=== PATIENT | female | born 1985 | race Caucasian/White ===

== ENCOUNTER → 2018-02-23 16:12 | Outpatient (CLI) | payer OTHER, SELFPAY ==
[2018-02-23 18:17] LABS: Chlamydia Trachomatis by PCR Negative (Negative); Neisserai gonorrhoeae by PCR Negative (Negative); Probe Check PASS; Sample Adequacy Control PASS; Specimen Processing Control PASS
[2018-02-28 16:17] LABS: HPV Reflexed? NOT INDICATED
== END ==
PROVIDERS: Visit Provider Obstetrics & Gynecology
DX: Z12.4 Encounter for screening for malignant neoplasm of cervix (principal); Z11.3 Encounter for screening for infections with a predominantly sexual mode of transmission
CPT/HCPCS: 87491; 87591; 88175; G0145

== ENCOUNTER → 2018-08-03 10:42 | Outpatient (CLI) | payer OTHER, SELFPAY ==
[2018-08-03 14:23] LABS: Hematocrit 33.4 % (37-47); Mean Corp Hgb Conc 32.9 g/gl (32-36); Mean Corpuscular Hgb 29.5 pg (27.0-32.0); Mean Corpuscular Volume 89.5 fL (81-99); Mean Platelet Vol. 9.6 fl (6.2-12.0); Platelet Count 286 K/mm3 (150-450); RBC Distribution Width CV 13.4 % (11.6-14.6); RBC Distribution Width SD 42.8 fl (35.1-43.9); Red Blood Count 3.73 M/mm3 (4.2-5.4); White Blood Count 10.8 K/mm3 (4.4-11.0)
[2018-08-03 14:25] LABS: Scan Indicated on CBC? Y/N NO
[2018-08-03 14:41] LABS: Glucose Challenge Gest 1H 50g 156 mg/dL (70-140)
== END ==
PROVIDERS: Visit Provider Obstetrics & Gynecology
DX: Z34.83 Encounter for supervision of other normal pregnancy, third trimester (principal)
CPT/HCPCS: 36415; 82950; 85027

== ENCOUNTER → 2018-10-05 13:28 | Outpatient (CLI) | payer OTHER, SELFPAY ==
--- OUTSIDE RECORDS SUMMARY | 2018-11-30 17:57 | XMS RPT_ITS ---
:1985 Author Organization OHIP Care Team Providers Name Role Phone GOKUL DAILEY Admitting Unavailable GOKUL DAILEY Attending Unavailable GOKUL DAILEY Primary Care Unavailable GOKUL DAILEY Admitting Unavailable GOKUL DAILEY Attending Unavailable GOKUL DAILEY Primary Care Unavailable JARETH SHAW Consulting Unavailable PROVIDER, UNKNOWN Consulting Unavailable Gokul Dailey Attending Unavailable Gokul Dailey Referring Unavailable Gokul Dailey Admitting Unavailable Gokul Dailey Attending Unavailable Gokul Dailey Referring Unavailable Primay Care Physicia, No Primary Care Unavailable Gokul Dailey Attending Unavailable Gokul Dailey Attending Unavailable Sylwia Henry Attending Unavailable Sylwia Henry Referring Unavailable PROBLEMS PROBLEMS DATE TYPE CONDITION / CODE ATTENDING STATUS SOURCE 08/03/2018 Unknown Z34.83 - Encounter Gokul Dailey for supervision of [facility] other normal Hospital , third Repository trimester / Z34.83(ICD-10) 02/24/2018 Unknown Z12.4 - Encounter Gokul Dailey for screening for Community malignant neoplasm Hospital of cervix / Repository Z12.4(ICD-10) 02/24/2018 Unknown Z11.3 - Encounter Gokul Dailey for screening for Community infections with a Hospital predominantly Repository sexual mode of transmission / Z11.3(ICD-10) PROCEDURES PROCEDURES No Procedure Records FoundRESULTS RESULTS OPERATIVE REPORT Observed: 10/19/2018 Status: F Source: BRAIN 2:48 PM [facility] REPOSITORY [facility] Medical Records Department [address] [place] [address] Operative Report 10/19/18 1446 MR#: [id number] Acct: [id number] Name: ZENA ALVARADO Rep #: [id number] : 1985 33 From: Gokul Dailey MD PCP: Care Physician, No Primary Status: ADM IN Location: [place] [id number] Vaginal Delivery Maternal Presentation: Elective Induction Method of Induction: Pitocin, Amniotomy Amniotic Membrane Rupture Type: Artificial Amniotic Fluid Description: Clear Final SOLO: 10/26/18 Final SOLO Source: US <20 weeks Gestational age: 39 Weeks and 0 Days Date of Procedure: 10/19/18 Pre-Operative Diagnosis: IUP Post-Operative Diagnosis: IUP Surgery/ Procedure Performed: Spontaneous Vaginal Delivery Type of Anesthesia: None Description of Procedure: Spontaneous vaginal delivery of a viable female with Apgars of 8/9 from an occiput anterior presentation with clear amniotic fluid and normal three-vessel placenta. No episiotomy or laceration. Sponge counts okay. Delivery physician: Gokul Dailey MD. Presentation: Vertex Placental Delivery Description: Spontaneous Placenta Disposition: [facility] Cord Vessel Description: 3 Vessels Cord Entanglement: None Estimated Blood Loss: 250 cc A gender: Female (1 minute): 8 (5 minute): 9 Episiotomy Description: None Laceration: None Medications given after delivery: IV Pitocin Complications: None 10/19/18 1448 <Electronically signed by Gokul Dailey MD> Date Gokul Dailey MD CC: No Primary Care Physician; Gokul Dailey MD Signed DISCHARGE INSTRUCTION Observed: 10/19/2018 Status: F Source: BRAIN 2:48 PM [facility] REPOSITORY [facility] Medical Records Department [address] [place] [address] Instructions for Home/Discharge Instructions 10/19/18 1448 MR#: [id number] Acct: [id number] Name: ZENA ALVARADO Rep #: [id number] : 1985 33 From: Gokul Dailey MD PCP: Care Physician, No Primary Status: ADM IN Discharge Diet: No Restrictions Discharge Activity: May Shower, May Take a Tub Bath May resume sexual activity in: 4-6 weeks Additional Activity Instructions:: Nothing in the vagina for 4-6 weeks. You may return to work/school in 6 weeks. Call your doctor if you observe: Fever of 101 or Higher, Inability to urinate, Inability to have a bowel movement, Using more than one pad per hour Additional Instructions: If you experience any of the following, contact your healthcare provider. * Bleeding that soaks a pad every hour for 2 hours * Unrelieved incision or abdominal pain * Swelling, redness, discharge or bleeding from your incision or episiotomy site * Your incision begins to separate * Problems urinating (including inability to urinate or burning while urinating). * Visual changes * Severe headache * Flu-like symptoms * Pain or redness in one of both of your breasts * Pain, warmth, tenderness or swelling in your legs, especially the calf area * Frequent nausea and vomiting * Symptoms of depression or anxiety If you experience any of the following, call 911 or go to the nearest Emergency Room. * Chest pain * Problems breathing * Seizure activity * Partial or complete paralysis of a body part, slurred speech, weakness or drooping of the face, or a sudden inability to walk or hold your balance Allergies/Adverse Reactions: Allergies egg Adverse Reaction (Verified 10/09/18 06:57) Upset Stomach gluten Adverse Reaction (Verified 10/09/18 06:57) Upset Stomach Medications to take at Discharge Vits [Prenatabs FA] 1 tablet PO DAILY 10/09/18 Please Follow Up With: Gokul Dailey MD - [phone] When: Call to make an appointment with your doctor in 6 weeks. Primary Care Physician: Care Physician,No Primary [Primary Care Provider] - Test Results: Test results from this visit will be discussed in further detail at your follow-up appointment, if applicable. 10/19/18 1448 <Electronically signed by Gokul Dailey MD> Date Gokul Dailey MD CC: No Primary Care Physician CBC-COMPLETE BLOOD CNT Collected: 10/19/2018 Status: F Source: BRAIN NO DIFF 7:40 AM [facility] REPOSITORY TYPE CODE TESTS RESULT OUT OF RANGE REFERENCE UNITS LAB L100.1000 4.4-11.0 K/mm3 Normal WBC 8.5 LAB L100.1200 4.2-5.4 M/mm3 Low RBC 3.93 LAB L100.1300 12.0-15.0 g/dl Low HGB 11.2 LAB L100.1400 37-47 % Low HCT 33.7 LAB L100.1500 81-99 fL Normal MCV 85.8 LAB L100.1600 27.0-32.0 pg Normal MCH 28.5 LAB L100.1700 32-36 g/gl Normal MCHC 33.2 LAB L100.1810 11.6-14.6 % Normal RDW CV 13.9 LAB L100.1820 35.1-43.9 fl Normal RDW SD 43.3 LAB L100.1900 150-450 K/mm3 Normal PLT 238 LAB L100.2000 6.2-12.0 fl Normal MPV 9.3 Performed By: #### L100.0500 #### [facility] [address] [place], [place], [address] TYPE AND SCREEN Collected: 10/19/2018 Status: F Source: BRAIN 7:40 AM [facility] REPOSITORY Order Comment: Reason for Type AND Screen/Red Cells: ROUTINE TYPE CODE TESTS RESULT OUT OF RANGE REFERENCE UNITS LAB B10.0800 O Normal BLOOD TYPE GEL POSITIVE LAB B100.4000 Normal Antibody NEGATIVE Screen Performed By: #### B101.7450 #### [facility] [address] [place], [address] Observed: 10/05/2018 Status: F Source: BRAIN CULTURE, GROUP B 11:00 AM [facility] STREPTOCOCCUS REPOSITORY KINDRA Culture Group B Beta Streptococcus is not isolated. Performed By: #### M100.1800 #### [facility] [address] [place], [address] GLUCOSE TOLERANCE-3 Collected: 08/14/2018 Status: F Source: NOEL POMERENE HOUR 7:20 AM [facility] REPOSITORY TYPE CODE TESTS RESULT OUT OF REFERENCE UNITS RANGE LAB GLUCOSE TOLERANCE-3 HOUR(LOINC) GLUCOSE TOLERANCE-3 HOUR Result Comment: 3 HOUR GLUCOSE TOLERANCE Reference Range BLOOD Adult(non) Adult() FASTING _91 mg/dl <100 mg/dL 95 mg/dL 08/14/18.0755.HEM. . . 1 HOUR _131 mg/dl 70-115 mg/dL 180 mg/dL 08/14/18.1005.HEM. 2 HOUR _159 mg/dl <140 mg/dL 155 mg/dL 08/14/18.1045.HEM. 3 HOUR _116 mg/dl 70-115 mg/dL 140 mg/dL 08/14/18.1151.HEM. URINE-GLUCOSE Fasting......... _NA (NORMAL) 08/14/181151.HEM. 1 hour.......... _NA (NORMAL) 08/14/181151.HEM. 2 hours......... _NA (NORMAL) 08/14/181151.HEM. 3 hours......... _NA (NORMAL) 08/14/181151.HEM. URINE-KETONES Fasting......... _NA (NEGATIVE) 08/14/18.HEM. 1 hour.......... _NA (NEGATIVE) 08/14/18.HEM. 2 hour.......... _NA (NEGATIVE) 08/14/18.HEM. 3 hour.......... _NA (NEGATIVE) 08/14/18.HEM. Performed By: #### [id number] #### [facility],[address] [address] CBC-COMPLETE BLOOD CNT Collected: 08/03/2018 Status: F Source: BRAIN NO DIFF 10:45 AM [facility] REPOSITORY TYPE CODE TESTS RESULT OUT OF RANGE REFERENCE UNITS LAB L100.1000 4.4-11.0 K/mm3 Normal WBC 10.8 LAB L100.1200 4.2-5.4 M/mm3 Low RBC 3.73 LAB L100.1300 12.0-15.0 g/dl Low HGB 11.0 LAB L100.1400 37-47 % Low HCT 33.4 LAB L100.1500 81-99 fL Normal MCV 89.5 LAB L100.1600 27.0-32.0 pg Normal MCH 29.5 LAB L100.1700 32-36 g/gl Normal MCHC 32.9 LAB L100.1810 11.6-14.6 % Normal RDW CV 13.4 LAB L100.1820 35.1-43.9 fl Normal RDW SD 42.8 LAB L100.1900 150-450 K/mm3 Normal PLT 286 LAB L100.2000 6.2-12.0 fl Normal MPV 9.6 Performed By: #### L100.0500 #### [facility] [address] [place], [address] GLUCOSE CHALLENGE GEST Collected: 08/03/2018 Status: F Source: BRAIN 1H 50G 10:45 AM [facility] REPOSITORY TYPE CODE TESTS RESULT OUT OF RANGE REFERENCE UNITS LAB L501.0250 70-140 mg/dL High GLU GEST 156 50g 1H Performed By: #### L501.0250 #### [facility] [place], [address] CBC Collected: 04/11/2018 Status: F Source: NOEL TERRY 3:08 PM [facility] REPOSITORY TYPE CODE TESTS RESULT OUT OF RANGE REFERENCE UNITS LAB CBC(LOINC) CBC Result Comment: CBC-COMPLETE BLOOD COUNT LAB WBC(LOINC) 4.5 - 10.8 x 10EE3/UL WBC High 11.5 LAB RBC(LOINC) 4.10 - x 10EE6/UL 5.30 RBC 4.34 LAB HEMOGLOBIN(LOINC 12.0 - g/dl ) 16.0 HEMOGLOBIN 12.7 LAB HEMATOCRIT(LOINC 34.0 - % ) 46.0 HEMATOCRIT 37.2 LAB MCV(LOINC) 80 - 99 fl MCV 86 LAB MCH(LOINC) 27 - 33 pg MCH 29 LAB MCHC(LOINC) 32 - 36 X10 3 MCHC 34 LAB RDW/CV(LOINC) 12.0 - % 15.6 RDW/CV 13.8 LAB PLATELET(LOINC) 150 - 450 x10EE3/UL PLATELET 282 LAB MPV(LOINC) 6.6 - 10.5 fl MPV 8.4 Result Comment: AUTOMATED DIFFERENTIAL LAB NEUT %(LOINC) 46.0 - 76.0 % NEUT % 74.2 LAB LYMPH %(LOINC) 20.0 - 45.0 % Low LYMPH % 17.2 LAB MONOS %(LOINC) 0.0 - 10.0 % MONOS % 6.6 LAB EO %(LOINC) 0.0 - 7.0 % EO % 1.2 LAB BASO %(LOINC) 0.0 - 2.0 % BASO % 0.8 LAB Lymph #(LOINC) 0.80 - 2.80 x10EE3/U L Lymph # 2.00 LAB Neut #(LOINC) 1.50 - 7.10 x10EE3/U L Neut # High 8.50 LAB [place] #(LOINC) 0.20 - 1.00 x10EE3/U L [place] # 0.80 LAB EO #(LOINC) 0.00 - 0.50 x10EE3/U L EO # 0.10 LAB Baso #(LOINC) 0.00 - 0.10 x10EE3/U L Baso # 0.10 LAB MANUAL DIFF(LOINC) MANUAL DIFF N/A LAB MORPHOLOGY(LOINC ) MORPHOLOGY N/A Result Comment: {CD] Performed By: #### [id number] #### [place] [address] URINALYSIS Collected: 04/11/2018 Status: F Source: [facility] [address] [place] [address] REPOSITORY TYPE CODE TESTS RESULT OUT OF REFERENCE UNITS RANGE LAB URINALYSIS (LOINC) URINALYSIS Result Comment: URINALYSIS LAB Specimen Type(LOINC) Specimen Type UNSPECIFIED LAB Color(LOINC) NORMAL: YELLOW Color yellow LAB Clarity(LOINC) NORMAL: CLEAR Clarity clear LAB ph(LOINC) NORMAL: 5.0-8.0 ph 6 LAB Protein(LOINC) NORMAL: NEGATIVE Protein NEG LAB Glucose(LOINC) NORMAL: NORMAL Glucose NORM LAB Ketone(LOINC) NORMAL: NEGATIVE Ketone NEG LAB Bilirubin(LOINC) NORMAL: NEGATIVE NEG Bilirubin LAB Blood(LOINC) NORMAL: NEGATIVE Blood NEG LAB Urobilinog(LOINC NORMAL: ) NORMAL NORM Urobilinog LAB Sp NORMAL: [place](LOINC) 1.010-1.030 Sp 1.015 [place] LAB Nitrite(LOINC) NORMAL: NEGATIVE Nitrite NEG LAB Leukocytes(LOINC NORMAL: ) NEGATIVE 25 Abnormal Leukocytes LAB Microscopic(LOIN C) SEE Microscopic BELOW Result Comment: MICROSCOPIC LAB Wbc(LOINC) 0-5/hpf Wbc 1-5 LAB Rbc(LOINC) 0-3/hpf Rbc 0-5 LAB Casts(LOINC) Casts NONE LAB Crystals(LOINC) Crystals NONE LAB Amorphous(LOINC) Amorphous NONE LAB Bacteria(LOINC) Bacteria TRACE LAB Epi Cells(LOINC) Epi Cells OCC LAB Mucous(LOINC) Mucous NONE LAB Yeast(LOINC) Yeast NONE Performed By: #### [id number] #### [place] [address] TSH Collected: 04/11/2018 Status: F Source: [facility] 3:[address] [place] [address] REPOSITORY TYPE CODE TESTS RESULT OUT OF RANGE REFERENCE UNITS LAB TSH(LOINC) 0.34 - 5.60 uIU/ml TSH 0.75 Performed By: #### [id number] #### [place] [address] BB TYPE & SCREEN Collected: 04/11/2018 Status: F Source: NOEL TIPTONLJ 3:08 PM [facility] REPOSITORY TYPE CODE TESTS RESULT OUT OF REFERENCE UNITS RANGE LAB BB TYPE & SCREEN(LOIN C) BB TYPE & SCREEN Result Comment: TYPE, Rh, AND SCREEN LAB ABO(LOINC) ABO O LAB Rh(LOINC) Rh POS LAB ANTIBODY SCR(LOINC) ANTIBODY negative SCR Performed By: #### [id number] #### [place] [id number] RUBELLA IMMUNE Collected: 04/11/2018 Status: F Source: NOEL TIPTONELOYPEDRO STATUS [QUEST] 3:08 PM [facility] REPOSITORY TYPE CODE TESTS RESULT OUT OF REFERENCE UNITS RANGE LAB RUBELLA IMMUNE STATUS [QUEST](LOINC ) RUBELLA IMMUNE STATUS [QUEST] Result Comment: _RUBELLA IMMUNE STATUS_ RUBELLA ANTIBODY (IGG) Reported: 04/14/2018 17:28 Status=F TEST RESULT FLAG RANGE UNITS RUBELLA ANTIBODY (IGG) 1.68 >=1.00 Index 04/14/18.1750.Mahesh.AMRR .5334-8 INDEX INTERPRETATION < 0.90 Not consistent with Immunity 0.90 - 0.99 Equivocal > or = 1.00 Consistent with Immunity The presence of Rubella IgG antibody suggests immunization or past or current infection with Rubella virus. Test Performed by [facility], [address] [place], [place] Sid Whelan M.D., Ph.D., Director of Laboratories , CLIA [id number] Performed By: #### [id number] #### [facility],[address] [place] [address] RPR W/TITER AND CONF Collected: 04/11/2018 Status: F [facility] 3:08 PM [facility] REPOSITORY TYPE CODE TESTS RESULT OUT OF REFERENCE UNITS RANGE LAB RPR W/TITER AND CONF REFLEX [QUEST](LOINC RPR ) W/TITER AND CONF REFLEX [QUEST] Result Comment: _RPR W/TITER AND CONF REFLEX_ RPR (MONITOR) WITH REFLEX TO TITER Reported: 04/14/2018 17:39 Status=F TEST RESULT FLAG RANGE UNITS RPR SCREEN Nonreactive Nonreactive 04/14/18.rfl.COMPLETE.AMRR .50132-3 RPR TITER Not indicated. 04/14/18.rfl.COMPLETE.AMRR Test Performed by [employer], [employer], [address] [place], [place] Sid Whelan M.D., Ph.D., Director of Laboratories , CLIA [id number] Performed By: #### [id number] #### [facility],[address] [place] [address] HEP B SURFACE AG Collected: 04/11/2018 Status: F Source: NOEL LOWPEDRO [QUEST] 3:08 PM [facility] REPOSITORY TYPE CODE TESTS RESULT OUT OF REFERENCE UNITS RANGE LAB HEP B SURFACE AG [QUEST](LOINC ) HEP B SURFACE AG [QUEST] Result Comment: _HEP B SURFACE AG_ HEPATITIS B SURFACE ANTIGEN W/RFLX TO CONFIRM. Reported: 04/14/2018 19:08 Status=F TEST RESULT FLAG RANGE UNITS HEPATITIS B SURFACE AG Nonreactive Nonreactive 04/14/18.rfl.COMPLETE.AMRR .5196-1 CONFIRMATION see below 04/14/18.rfl.COMPLETE.AMRR .7905-3 Not required according to the current package insert. Test Performed by [facility], [facility], [address] [place] [address] Sid Whelan M.D., Ph.D., Director of [employer] , [place] [id number] Performed By: #### [id number] #### [facility],[address] [place] [address] HEP C VIRUS AB WITH Collected: 04/11/2018 Status: F Source: NOEL TIPTONLJ REFLEX [QUEST] 3:08 PM [facility] REPOSITORY TYPE CODE TESTS RESULT OUT OF REFERENCE UNITS RANGE LAB HEP C VIRUS AB WITH REFLEX [QUEST](LOINC HEP C ) VIRUS AB WITH REFLEX [QUEST] Result Comment: _HEP C VIRUS AB_ HEPATITIS C AB W/REFL HCV RNA, QN REAL-TIME PCR Reported: 04/14/2018 19:08 Status=F TEST RESULT FLAG RANGE UNITS HEPATITIS C ANTIBODY Nonreactive Nonreactive 04/14/18.rfl.COMPLETE.AMRR .95207-2 SIGNAL TO CUTOFF 0.02 <1.00 ratio 04/14/18.rfl.COMPLETE.AMRR .73375-3 ADDITIONAL TESTING Not indicated 04/14/18.rfl.COMPLETE.AMRR Test Performed by [employer], [facility], [address] [place] [address] Sid Whelan M.D., Ph.D., Director of [facility] , [facility] [id number] Performed By: #### [id number] #### [facility],[address] [place] [address] HIV 1 / 2 EIA SCR Collected: 04/11/2018 Status: F Source: [facility] W/RFX [QUEST] 3:08 PM [facility] REPOSITORY TYPE CODE TESTS RESULT OUT OF RANGE REFERENCE UNITS LAB HIV 1 / 2 EIA SCR W/RFX [QUEST](JESSICA HIV 1 / 2 NC) EIA SCR W/RFX [QUEST] Result Comment: _HIV-1/2 EIA SCR W/RFX_ SEE SEPARATE REPORT Performed By: #### [id number] #### [facility],[address] [facility] [address] CT/NG WCH BY PCR Collected: 02/23/2018 Status: F Source: [place] 2:30 PM [facility] REPOSITORY TYPE CODE TESTS RESULT OUT OF RANGE REFERENCE UNITS LAB L8200.2100 Negative Normal Chlam Negative Trac PCR LAB L8200.2200 Negative Normal NG by Negative PCR Performed By: #### L8200.1999 #### [facility] [address] [place], [address] PAP IG W/REFLEX HR Collected: 02/23/2018 Status: F Source: [place] HPV APTIMA 2:30 PM [facility] REPOSITORY Order Comment: CYTOLOGY INFORMATION: - CLINICAL INFORMATION: - DATE LMP/MENOPAUSE: LMP - COLLECTION VIAL: Thin Prep Vial - GUEST SPECIALIST SOURCE: CERVICAL/ENDOCERVICAL - COLLECTION TECHNIQUE: BRUSH/SPATULA Specimen Comment: [id number] Specimen Comment: No. of containers..01 ThinPrep Vial TYPE CODE TESTS RESULT OUT OF RANGE REFERENCE UNITS LAB L7400.0800 . Normal DIAGN Comment Result Comment: NEGATIVE FOR INTRAEPITHELIAL LESION AND MALIGNANCY. LAB L7400.0900 . Normal ADEQ Comment Result Comment: Satisfactory for evaluation. Endocervical and/or squamous metaplastic cells (endocervical component) are present. LAB L7400.1400 . Normal PERFORM Comment Result Comment: Christian Thomas Air Dispatcher (ASCP) LAB L7400.2575 . Normal TEST METHOD Comment Result Comment: This liquid based ThinPrep(R) pap test was screened with the use of an image guided system. LAB L7400.2600 . Normal . COMM LAB L7400.2700 . Normal PAPSMR Comment Result Comment: The Pap smear is a screening test designed to aid in the detection of premalignant and malignant conditions of the uterine cervix. It is not a diagnostic procedure and should not be used as the sole means of detecting cervical cancer. Both false-positive and false-negative reports do occur. LAB L7400.2800 . Normal HPV RFLX Comment Result Comment: The HPV DNA reflex criteria were not met with this specimen result therefore, no HPV testing was performed. Performed at: [address], [id number] [employer] Analyst: Katiuska Rod MD, Phone: [phone] Performed By: #### L7400.0357 #### [facility] (refer to report for specific site) refer to report for address and phone number ALLERGIES ALLERGIES DATE TYPE / CODE NAME / CODE REACTION SEVERITY SOURCE 10/09/2018 Drug egg/[id number]( Upset Stomach Unknown [place] Allergy/795740399(S RXNORM) [facility] NOMED CT) Hospital Repository 10/09/2018 Drug gluten/[id number] Upset Stomach Unknown [place] Allergy/735888585(S 07(RXNORM) [facility] CT) Hospital Repository Food GLUTEN Moderate [place]el [place] Allergy/563470792(S ([facility]) Modifier) Hospital (Qualifier Repository Value) Drug EGGS/97390470(R Moderate [place] Allergy/489151129(S XNORM) ([facility]OM[facility]) Modifier) Hospital (Qualifier Repository Value) Miscellaneous No Known Drug Moderate [place] Allergy/789591272(S Allergies ([facility]OM[facility]) Modifier) Hospital (Qualifier Repository Value) ENCOUNTERS ENCOUNTERS ADMIT/DISCHARGE ACCOUNT ADMITTING ENCOUNTER LOCATION SOURCE NUMBER CLASS 10/19/2018/ [id number] Gokul Dailey Inpatient [place] 8 3 Encounter [facility] ing:WPRoom: Repository YY284Ycl: 1 10/09/2018/ [id number] Ambulatory [place] 8 2 [facility] ing:WPOUTRoom Repository : [id number] 10/05/2018 [id number] Ambulatory [place] 3 [facility] ing:LABSPEC Repository 08/14/2018/ [id number] GOKUL DAILEY Ambulatory [address] Repository 08/03/2018 [id number] Ambulatory [place] Brain 3 [facility] ing:WOBLAB Repository 04/11/2018/ [id number] GOKUL DAILEY Ambulatory [address] Repository 02/23/2018 [id number] Ambulatory [place] Brain 0 [facility] ing:LABSPEC Repository PAYERS PAYERS ENCOUNTER GUARANTOR PAYER SUBSCRIBER SOURCE 10/19/2018 ZENA D Primary Insurance:[facility] ZENA D Brain [id number] PACKAGE PLANPolicy HERSHBERGERDOB: [facility] Number: [id number] [id number] Repository 125[address]Yyc: 330) Date:2018-03-17 [phone] (HP) 10/19/2018 Secondary ZENA D [place] Insurance:PROTESTANT HERSHBERGERDOB: [facility] [id number] Hospital GROUPPolicy Number: Repository [id number] Date: TW RD [address] [place] [address]SX: 10/19/2018 Tertiary NOT GIVENUNK [place] Insurance:SELF PAY [facility] Number: Effective Repository Date:2018-03-17 10/09/2018 ZENA D Primary ZENA D Brain [id number] Insurance:PROTESTANT HERSHBERGERDOB: [facility] [id number] GROUPPolicy Number: Repository [id number]: 330 [id number] [phone] (HP) Date: TW RD [address] [place] [address]HP: 10/09/2018 Secondary NOT GIVENUNK [place] Insurance:SELF PAY [facility] [place] [facility] Number: Effective Repository Date:2018-10-09 10/05/2018 ZENA D Primary ZENA D Brain [id number] Insurance:PROTESTANT HERSHBERGERDOB: [facility] [id number] GROUPPolicy Number: Repository [id number]: 330 [id number] [phone] (HP) Date: T[address] [address]FW: 10/05/2018 Secondary NOT GIVENUNK Brain Insurance:SELF PAY [facility] [place] [facility] Number: Effective Repository Date:2018-10-05 08/14/2018 ZENA D Primary PHUC Terry HERSHBERGERDOB: Insurance:PROTESTANT HERSHBERGERDOB: [facility] [id number] [facility] [id number] Number: 105Effective [address] Repository [place], [place] Date: [place], [place] [id number]: [phone] () 08/03/2018 [facility] Primary [address] [place] [id number] Insurance:PROTESTANT HERSHBERGERDOB: [facility] [id number], [place] GROUPPolicy Number: Repository [id number]: 330 [id number] [phone] () Date: T[address] [address]NE: 08/03/2018 Secondary NOT GIVENUNK [place] Insurance:SELF PAY [facility] Number: Effective Repository Date:2018-08-03 02/23/2018 [facility] Primary [address] [place] [id number] Insurance:PROTESTANT HERSHBERGERDOB: [facility] [id number], [place] GROUPPolicy Number: Repository [id number]: 330 [id number] [phone] () Date: T[address] [address]PW: 02/23/2018 Secondary NOT GIVENUNK Brain Insurance:SELF PAY [facility] Number: Effective Repository Date:2018-02-23
== END ==
PROVIDERS: Visit Provider Obstetrics & Gynecology
DX: Z36.85 Encounter for antenatal screening for Streptococcus B (principal)
CPT/HCPCS: 87081

== ENCOUNTER 2018-10-09 06:35 | Outpatient (CLI) | payer OTHER, SELFPAY ==
[2018-10-09 06:54] VITALS: BMI 28.4
--- NOTE | 2018-10-10 22:38 | OB.TRI.NOTE ---
History of Present Illness Date of Service: 10/09/18 Was patient seen by the physician?: No Reason For Visit: decreased movement Date of Service: 10/09/18 Final SOLO: 10/26/18 Gestational age: 37 Weeks and 3 Days History of Present Illness: 33 yo [id number] (loss at 19 wks, twin IUP demise) presents with CC of dec movement. no s/sx of labor. Allergies egg Adverse Reaction (Verified 10/09/18 06:57) Upset Stomach gluten Adverse Reaction (Verified 10/09/18 06:57) Upset Stomach NST - FHR Rate Baby A Baseline: 140-150 with accels to 170s Variability:: Moderate Accelerations:: 15 x 15 Decelerations:: None NST Reactive:: Yes, Appropriate for gestational age FHR Category:: Category I Uterine Activity:: irritability, no regular UCs Impression/Plan 37 3/7 wk Decreased movement. Reactive NST Home RTO for next appt as scheduled.
--- NOTE | 2018-10-10 22:41 | OB.TRI.HP_ITS ---
History of Present Illness Date of Service: 10/09/18 Was patient seen by the physician?: No Reason For Visit: decreased movement Date of Service: 10/09/18 Final SOLO: 10/26/18 Gestational age: 37 Weeks and 3 Days History of Present Illness: 33 yo [id number] (loss at 19 wks, twin IUP demise) presents with CC of dec movement. no s/sx of labor. Allergies egg Adverse Reaction (Verified 10/09/18 06:57) Upset Stomach gluten Adverse Reaction (Verified 10/09/18 06:57) Upset Stomach NST - FHR Rate Baby A Baseline: 140-150 with accels to 170s Variability:: Moderate Accelerations:: 15 x 15 Decelerations:: None NST Reactive:: Yes, Appropriate for gestational age FHR Category:: Category I Uterine Activity:: irritability, no regular UCs Impression/Plan 37 3/7 wk Decreased movement. Reactive NST Home RTO for next appt as scheduled.
--- OUTSIDE RECORDS SUMMARY | 2018-12-02 04:52 | XMS RPT_ITS ---
[...] - Encounter Gokul Dailey for supervision of [facility] other normal Hospital , third Repository trimester [...] 10/19/2018 Status: F Source: BRAIN 2:48 PM [facility] REPOSITORY [facility] Medical Records Department [address] [place] [address] Operative Report 10/19/18 1446 MR#: [id number] Acct: [id number] Name: ZENA ALVARADO Rep #: [id number] : 1985 33 From: Gokul Dailey MD PCP: Care Physician, No Primary Status: ADM IN Location: [place] [id number] Vaginal Delivery Maternal Presentation: Elective Induction Method [...] 10/19/2018 Status: F Source: BRAIN 2:48 PM [facility] RE[facility]ITORY [facility] Medical Records Department [address] [place] [address] Instructions for Home/Discharge Instructions 10/19/18 1448 MR#: [id number] Acct: [id number] Name: ZENA ALVARADO Rep #: [id number] : 1985 33 From: Gokul Dailey MD [...] Follow Up With: Gokul Dailey MD - [phone] When: Call to make an appointment with [...] F Source: BRAIN NO DIFF 7:40 AM [facility] REPOSITORY TYPE CODE TESTS RESULT OUT OF [...] MPV 9.3 Performed By: #### L100.0500 #### [facility] [address]. [place], [place], [address] TYPE AND SCREEN Collected: 10/19/2018 Status: F Source: BRAIN 7:40 AM [facility] REPOSITORY Order Comment: Reason for Type AND Screen/Red Cells: ROUTINE TYPE CODE TESTS RESULT OUT OF RANGE REFERENCE UNITS LAB B10.0800 O Normal BLOOD TYPE GEL POSITIVE LAB B100.4000 Normal Antibody NEGATIVE Screen Performed By: #### B101.7450 #### [facility] [address] [place], [address] Observed: 10/05/2018 Status: F Source: BRAIN CULTURE, GROUP B 11:00 AM [facility] STREPTOCOCCUS REPOSITORY KINDRA Culture Group B Beta Streptococcus is not isolated. Performed By: #### M100.1800 #### [facility] [address] [place], [address] GLUCOSE TOLERANCE-3 Collected: 08/14/2018 Status: F Source: NOEL POMERENE HOUR 7:20 AM [facility] REPOSITORY TYPE CODE TESTS RESULT OUT OF [...] hour.......... _NA (NEGATIVE) 08/14/18.HEM. Performed By: #### [id number] #### [facility],[address] [place] [address] CBC-COMPLETE BLOOD CNT Collected: 08/03/2018 Status: F Source: BRAIN NO DIFF 10:45 AM [facility] REPOSITORY TYPE CODE TESTS RESULT OUT OF [...] MPV 9.6 Performed By: #### L100.0500 #### [facility] [address] [place], [address] GLUCOSE CHALLENGE GEST Collected: 08/03/2018 Status: F Source: BRAIN 1H 50G 10:45 AM [facility] REPOSITORY TYPE CODE TESTS RESULT OUT OF RANGE REFERENCE UNITS LAB L501.0250 70-140 mg/dL High GLU GEST 156 50g 1H Performed By: #### L501.0250 #### [facility] [place], [address] CBC Collected: 04/11/2018 Status: F Source: NOEL TERRY 3:08 PM [facility] REPOSITORY TYPE CODE TESTS RESULT OUT OF [...] x10EE3/U L Neut # High 8.50 LAB [place] #(LOINC) 0.20 - 1.00 x10EE3/U L [place] # 0.80 LAB EO #(LOINC) 0.00 - 0.50 x10EE3/U L EO # 0.10 LAB Baso #(LOINC) 0.00 - 0.10 x10EE3/U L Baso # 0.10 LAB MANUAL DIFF(LOINC) MANUAL DIFF N/A LAB MORPHOLOGY(LOINC ) MORPHOLOGY N/A Result Comment: {CD] Performed By: #### [id number] #### [place] [address] URINALYSIS Collected: 04/11/2018 Status: F Source: [facility] [address] [place] [address] REPOSITORY TYPE CODE TESTS RESULT OUT OF [...] ) NORMAL NORM Urobilinog LAB Sp NORMAL: [place](LOINC) 1.010-1.030 Sp 1.015 [place] LAB Nitrite(LOINC) NORMAL: NEGATIVE Nitrite NEG LAB [...] LAB Yeast(LOINC) Yeast NONE Performed By: #### [id number] #### [place] [address] TSH Collected: 04/11/2018 Status: F Source: [facility] [address] [place] [address] REPOSITORY TYPE CODE TESTS RESULT OUT OF RANGE REFERENCE UNITS LAB TSH(LOINC) 0.34 - 5.60 uIU/ml TSH 0.75 Performed By: #### [id number] #### [place] [address] BB TYPE & SCREEN Collected: 04/11/2018 Status: F Source: NOEL TIPTONLJ 3:08 PM [facility] REPOSITORY TYPE CODE TESTS RESULT OUT OF REFERENCE UNITS RANGE LAB BB TYPE & SCREEN(LOIN C) BB TYPE & SCREEN Result Comment: TYPE, Rh, AND SCREEN LAB ABO(LOINC) ABO O LAB Rh(LOINC) Rh POS LAB ANTIBODY SCR(LOINC) ANTIBODY negative SCR Performed By: #### [id number] #### [place] [id number] RUBELLA IMMUNE Collected: 04/11/2018 Status: F Source: NOEL TIPTONELOYPEDRO STATUS [QUEST] 3:08 PM [facility] REPOSITORY TYPE CODE TESTS RESULT OUT OF [...] infection with Rubella virus. Test Performed by [facility], [address] [place], [place] Sid Whelan M.D., Ph.D., Director of Laboratories , CLIA [id number] Performed By: #### [id number] #### [facility],[address] [place] [address] RPR W/TITER AND CONF Collected: 04/11/2018 Status: F [facility]QUEST[facility] 3:08 PM [facility] REPOSITORY TYPE CODE TESTS RESULT OUT OF REFERENCE UNITS RANGE LAB RPR W/TITER AND CONF REFLEX [QUEST](LOINC RPR ) W/TITER AND CONF REFLEX [QUEST] Result Comment: _RPR W/TITER AND CONF REFLEX_ RPR (MONITOR) WITH REFLEX TO TITER Reported: 04/14/2018 17:39 Status=F TEST RESULT FLAG RANGE UNITS RPR SCREEN Nonreactive Nonreactive 04/14/18.rfl.COMPLETE.AMRR .70374-6 RPR TITER Not indicated. 04/14/18.rfl.COMPLETE.AMRR Test Performed by [facility], [place], [address] [place], [place] Sid Whelan M.D., Ph.D., Director of Laboratories , CLIA [id number] Performed By: #### [id number] #### [facility],[address] [place] [address] HEP B SURFACE AG Collected: 04/11/2018 Status: F Source: NOEL LOWPEDRO [QUEST] 3:08 PM [facility] REPOSITORY TYPE CODE TESTS RESULT OUT OF [...] the current package insert. Test Performed by [facility], [facility], [address] [place] [address] Sid Whelan M.D., Ph.D., Director of [employer] , [place] [id number] Performed By: #### [id number] #### [facility],[address] [place] [address] HEP C VIRUS AB WITH Collected: 04/11/2018 Status: F Source: NOEL TIPTONLJ REFLEX [QUEST] 3:08 PM [facility] REPOSITORY TYPE CODE TESTS RESULT OUT OF REFERENCE UNITS RANGE LAB HEP C VIRUS AB WITH REFLEX [QUEST](LOINC HEP C ) VIRUS AB WITH REFLEX [QUEST] Result Comment: _HEP C VIRUS AB_ HEPATITIS C AB W/REFL HCV RNA, QN REAL-TIME PCR Reported: 04/14/2018 19:08 Status=F TEST RESULT FLAG RANGE UNITS HEPATITIS C ANTIBODY Nonreactive Nonreactive 04/14/18.rfl.COMPLETE.AMRR .49506-4 SIGNAL TO CUTOFF 0.02 <1.00 ratio 04/14/18.rfl.COMPLETE.AMRR .19417-1 ADDITIONAL TESTING Not indicated 04/14/18.rfl.COMPLETE.AMRR Test Performed by [facility], [facility], [address] [place] [address] Sid Whelan M.D., Ph.D., Director of [facility] , [facility] [id number] Performed By: #### [id number] #### [facility],[address] [place] [address] HIV 1 / 2 EIA SCR Collected: 04/11/2018 Status: F Source: [facility] W/RFX [QUEST] 3:08 PM [facility] REPOSITORY TYPE CODE TESTS RESULT OUT OF RANGE REFERENCE UNITS LAB HIV 1 / 2 EIA SCR W/RFX [QUEST](JESSICA HIV 1 / 2 NC) EIA SCR W/RFX [QUEST] Result Comment: _HIV-1/2 EIA SCR W/RFX_ SEE SEPARATE REPORT Performed By: #### [id number] #### [facility],[address] [facility] [address] CT/NG WCH BY PCR Collected: 02/23/2018 Status: F Source: [place] 2:30 PM [facility] REPOSITORY TYPE CODE TESTS RESULT OUT OF RANGE REFERENCE UNITS LAB L8200.2100 Negative Normal Chlam Negative Trac PCR LAB L8200.2200 Negative Normal NG by Negative PCR Performed By: #### L8200.1999 #### [facility] [address] [place], [address] PAP IG W/REFLEX HR Collected: 02/23/2018 Status: F Source: [place] HPV APTIMA 2:30 PM [facility] REPOSITORY Order Comment: CYTOLOGY INFORMATION: - CLINICAL INFORMATION: - DATE LMP/MENOPAUSE: LMP - COLLECTION VIAL: Thin Prep Vial - BAND LINING BANDER SOURCE: CERVICAL/ENDOCERVICAL - COLLECTION TECHNIQUE: BRUSH/SPATULA Specimen Comment: [id number] Specimen Comment: No. of containers..01 ThinPrep Vial TYPE CODE TESTS RESULT OUT OF RANGE REFERENCE UNITS LAB L7400.0800 . Normal DIAGN Comment Result Comment: NEGATIVE FOR INTRAEPITHELIAL LESION AND MALIGNANCY. LAB L7400.0900 . Normal ADEQ Comment Result Comment: Satisfactory for evaluation. Endocervical and/or squamous metaplastic cells (endocervical component) are present. LAB L7400.1400 . Normal PERFORM Comment Result Comment: Christian Thomas Manager Universal (ASCP) LAB L7400.2575 . Normal TEST METHOD [...] no HPV testing was performed. Performed at: [address], [id number] Radio Division Captain: Katiuska Rod MD, Phone: [phone] Performed By: #### L7400.0357 #### [facility] (refer to report for specific site) refer to report for address and phone number ALLERGIES ALLERGIES DATE TYPE / CODE NAME / CODE REACTION SEVERITY SOURCE 10/09/2018 Drug egg/[id number]( Upset Stomach Unknown [place] Allergy/514959829(S RXNORM) [facility] NOMED CT) Hospital Repository 10/09/2018 Drug gluten/N1680449 Upset Stomach Unknown Brain Allergy/429648721(S 07(RXNORM) [facility] CT) Hospital Repository Food GLUTEN Moderate Noel Pomerene Allergy/494186818(S ([facility]) Modifier) Hospital (Qualifier Repository Value) Drug EGGS/21486480(R Moderate Noel [place] Allergy/842576265(S XNORM) ([facility]OM[facility]) Modifier) Hospital (Qualifier Repository Value) Miscellaneous No Known Drug Moderate Noel [place] Allergy/757623133(S Allergies ([facility]OM[facility]) Modifier) Hospital (Qualifier Repository Value) ENCOUNTERS ENCOUNTERS ADMIT/DISCHARGE ACCOUNT ADMITTING ENCOUNTER LOCATION SOURCE NUMBER CLASS 10/19/2018/ [id number] Gokul Dailey Inpatient [place] 8 3 Encounter [facility] ing:WPRoom: Repository IF008Efy: 1 10/09/2018/ [id number] Ambulatory [place] 8 2 [facility] ing:WPOUTRoom Repository : WP012 10/05/2018 [id number] Ambulatory [place] 3 [facility] ing:LABSPEC Repository 08/14/2018/ [id number] GOKUL DAILEY Ambulatory [address] Repository 08/03/2018 [id number] Ambulatory [place] Brain 3 [facility] ing:WOBLAB Repository 04/11/2018/ [id number] GOKUL DAILEY Ambulatory [address] Repository 02/23/2018 [id number] Ambulatory Brain Brain 0 [facility] ing:LABSPEC Repository PAYERS PAYERS ENCOUNTER GUARANTOR PAYER SUBSCRIBER SOURCE 10/19/2018 ZENA D Primary Insurance:[facility] ZENA D Brain [id number] PACKAGE PLANPolicy HERSHBERGERDOB: [facility] [place]: [id number] [id number] Repository [address]Rha: 330) Date:2018-03-17 [phone] (HP) 10/19/2018 Secondary ZENA D [place] Insurance:SPIRITISM HERSHBERGERDOB: [facility] [id number] GROUPPolicy Number: Repository [id number] Date: TW [address] [place] [address]WD: 10/19/2018 Tertiary NOT GIVENUNK [place] Insurance:SELF PAY [facility] Number: Effective Repository Date:2018-03-17 10/09/2018 ZENA D Primary ZENA D Brain [id number] Insurance:SPIRITISM HERSHBERGERDOB: [facility] [id number] GROUPPolicy Number: Repository [id number]: 330 [id number] [phone] (HP) Date: TW [address] [place] [address] 212[address]HA: 10/09/2018 Secondary NOT GIVENUNK Brain Insurance:SELF PAY [facility] Number: Effective Repository Date:2018-10-09 10/05/2018 ZENA D Primary ZENA D Brain [id number] Insurance:SPIRITISM HERSHBERGERDOB: [facility] [id number] GROUPPolicy Number: Repository [id number]: 330 [id number] [phone] (HP) Date: TWP [address] [address]OI: 10/05/2018 Secondary NOT GIVENUNK Brain Insurance:SELF PAY [facility] Number: Effective Repository Date:2018-10-05 08/14/2018 ZENA D Primary PHUC Terry HERSHBERGERDOB: Insurance:SPIRITISM HERSHBERGERDOB: [facility] [id number] [facility] [id number] Number: [id number] [address] Repository [place] Date: [place], [place] [id number]: [phone] () 08/03/2018 [facility] Primary [place] [id number] Insurance:SPIRITISM HERSHBERGERDOB: [facility] [id number] GROUPPolicy Number: Repository [id number]: 330 [id number] [phone] () Date: T[address] [address]XT: 08/03/2018 Secondary NOT GIVENUNK [place] Insurance:SELF PAY [facility] Number: Effective Repository Date:2018-08-03 02/23/2018 [facility] Primary ZENA [place] [id number] Insurance:SPIRITISM HERSHBERGERDOB: [facility] [id number] GROUPPolicy Number: Repository [id number]: 330 [id number] [phone] () Date: TWP [address] [address]RJ: 02/23/2018 Secondary NOT GIVENUNK Brain Insurance:SELF PAY [facility] Number: Effective Repository Date:2018-02-23
== END 2018-10-09 07:15 | disposition home or self-care (01) ==
LOC: WPOUT 06:49 → WP 06:50
PROVIDERS: Referring Provider Obstetrics & Gynecology; Visit Provider Obstetrics & Gynecology
DX: O36.8130 Decreased fetal movements, third trimester, not applicable or unspecified (principal); Z3A.37 37 weeks gestation of pregnancy
CPT/HCPCS: 59025; 59050; 99218; G0378

== ENCOUNTER 2018-10-19 06:35 | Inpatient (IN) | payer SELFPAY, OTHER ==
[2018-10-19 06:41] VITALS: BMI 28.4
[2018-10-19] MEDS: Lactated Ringers 1,000 ML 50 ML IV ×2 (07:40→12:44)
[2018-10-19] MEDS: Oxytocin 30 units/NS 500 ml 30 UNITS/500 ML IV.SOLN IV (07:52)
[2018-10-19 07:54] LABS: Hematocrit 33.7 % (37-47); Hemoglobin 11.2 g/dl (12.0-15.0); Mean Corp Hgb Conc 33.2 g/gl (32-36); Mean Corpuscular Hgb 28.5 pg (27.0-32.0); Mean Corpuscular Volume 85.8 fL (81-99); Mean Platelet Vol. 9.3 fl (6.2-12.0); Platelet Count 238 K/mm3 (150-450); RBC Distribution Width CV 13.9 % (11.6-14.6); RBC Distribution Width SD 43.3 fl (35.1-43.9); Red Blood Count 3.93 M/mm3 (4.2-5.4); White Blood Count 8.5 K/mm3 (4.4-11.0)
[2018-10-19 07:56] LABS: Scan Indicated on CBC? Y/N NO
[2018-10-19] MEDS: Ondansetron 4 MG/2 ML Vial IV (14:16)
[2018-10-19] MEDS: Oxytocin 30 units/NS 500 ml 30 UNITS/500 ML IV.SOLN 334 UNITS IV (14:40)
--- NOTE | 2018-10-19 14:48 | DCINST_ITS ---
Discharge Diet: No Restrictions Discharge Activity: May Shower, May Take a Tub Bath May resume sexual activity in: 4-6 weeks Additional Activity Instructions:: Nothing in the vagina for 4-6 weeks. You may return to work/school in 6 weeks. Call your doctor if you observe: Fever of 101 or Higher, Inability to urinate, Inability to have a bowel movement, Using more than one pad per hour Additional Instructions: If you experience any of the following, contact your healthcare provider. * Bleeding that soaks a pad every hour for 2 hours * Unrelieved incision or abdominal pain * Swelling, redness, discharge or bleeding from your incision or episiotomy site * Your incision begins to separate * Problems urinating (including inability to urinate or burning while urinating). * Visual changes * Severe headache * Flu-like symptoms * Pain or redness in one of both of your breasts * Pain, warmth, tenderness or swelling in your legs, especially the calf area * Frequent nausea and vomiting * Symptoms of depression or anxiety If you experience any of the following, call 911 or go to the nearest Emergency Room. * Chest pain * Problems breathing * Seizure activity * Partial or complete paralysis of a body part, slurred speech, weakness or drooping of the face, or a sudden inability to walk or hold your balance Allergies/Adverse Reactions: Allergies egg Adverse Reaction (Verified 10/09/18 06:57) Upset Stomach gluten Adverse Reaction (Verified 10/09/18 06:57) Upset Stomach Medications to take at Discharge Vits [Prenatabs FA] 1 tablet PO DAILY 10/09/18 Please Follow Up With: Edu Yuen MD - [phone] When: Call to make an appointment with your doctor in 6 weeks. Primary Care Physician: Care Physician,No Primary [Primary Care Provider] - Test Results: Test results from this visit will be discussed in further detail at your follow- up appointment, if applicable.
--- NOTE | 2018-10-19 14:48 | OP.PCM_ITS ---
Vaginal Delivery Maternal Presentation: Elective Induction Method of Induction: Pitocin, Amniotomy Amniotic Membrane Rupture Type: Artificial Amniotic Fluid Description: Clear Final SOLO: 10/26/18 Final SOLO Source: US <20 weeks Gestational age: 39 Weeks and 0 Days Date of Procedure: 10/19/18 Pre-Operative Diagnosis: IUP Post-Operative Diagnosis: IUP Surgery/ Procedure Performed: Spontaneous Vaginal Delivery Type of Anesthesia: None Description of Procedure: Spontaneous vaginal delivery of a viable female with Apgars of 8/9 from an occiput anterior presentation with clear amniotic fluid and normal three- vessel placenta. No episiotomy or laceration. Sponge counts okay. Delivery physician: Edu Yuen MD. Presentation: Vertex Placental Delivery Description: Spontaneous Placenta Disposition: [facility] Cord Vessel Description: 3 Vessels Cord Entanglement: None Estimated Blood Loss: 250 cc Infant A gender: Female (1 minute): 8 (5 minute): 9 Episiotomy Description: None Laceration: None Medications given after delivery: IV Pitocin Complications: None
[2018-10-19] MEDS: Oxytocin 30 units/NS 500 ml 30 UNITS/500 ML IV.SOLN 167 UNITS IV (15:10)
[2018-10-19] MEDS: Ibuprofen 600 MG Tablet PO ×2 (15:56→23:21)
[2018-10-19] MEDS: Acetaminophen 500 MG Tablet 1000 MG PO (17:46)
[2018-10-19 20:30] VITALS: BP 143/74; PULSE 63; RESP 16; TEMP 36.8; O2SAT 98
[2018-10-19 23:32] VITALS: BP 121/69; PULSE 70; RESP 16; TEMP 36.9; O2SAT 98
[2018-10-20 04:10] VITALS: BP 131/70; PULSE 74; RESP 16; TEMP 36.7; O2SAT 97
[2018-10-20] MEDS: Ibuprofen 600 MG Tablet PO ×2 (07:52→18:09)
--- NOTE | 2018-10-20 08:38 | PCM.PN.OB ---
Subjective: PPD#1 Doing well. Breast feeding. No concerns voiced. Would like to go home later today if baby is released. 4 yo son at home. Objective: sitting up in bed, holding sleeping baby. Just finished nursing. - Physical Exam General: Alert, Oriented x3, Cooperative, No apparent distress HEENT: Atraumatic Neck: Supple Neurological: Cranial nerves II-XII grossly intact Psych/Mental Status: Normal Affect Vital Signs Temp Pulse Resp BP Pulse Ox 98.0 F 74 16 131/70 H 97 10/20/18 04:10 10/20/18 04:10 10/20/18 04:10 10/20/18 04:10 10/20/18 04:10 Oxygen Delivery Method Room Air Weight: 70.6 kg Body Mass Index (BMI) 28.4 Intake and Output for Last 24 Hours 10/18/18 10/19/18 10/20/18 23:59 23:59 23:59 Intake Total 2501 / 2501 Output Total 2400 / 2400 Balance 101 / 101 Laboratory Tests Past 24 Hrs 10/19/18 07:40 Blood Type O POSITIVE Antibody Screen NEGATIVE Medical Necessity - Tobacco Use Smoking Status: Never smoker Assessment/Plan PPD#1 stable pp. Dischg home today. RTO in 6 wk as scheduled for follow up, prn sooner.
[2018-10-20 09:13] VITALS: BP 111/68; PULSE 88; RESP 16; TEMP 36.9; O2SAT 98
[2018-10-20] MEDS: Senna/Docusate Sodium 1 Tablet PO (10:22)
[2018-10-20 13:02] VITALS: BP 115/82; PULSE 80; RESP 16; TEMP 36.8; O2SAT 98
[2018-10-20] MEDS: Acetaminophen 500 MG Tablet 1000 MG PO (13:10)
[2018-10-20 14:00] VITALS: BP 130/91; PULSE 84; RESP 16; TEMP 36.8; O2SAT 99
[2018-10-20 18:00] VITALS: BP 111/69; PULSE 88; RESP 16; TEMP 36.8; O2SAT 100
[2018-10-20 18:20] VITALS: BP 111/69; PULSE 88; RESP 16; TEMP 36.8; O2SAT 99
--- OUTSIDE RECORDS SUMMARY | 2018-12-05 00:19 | XMS RPT_ITS ---
[...] - Encounter Gokul Dailey for supervision of [facility] other normal [facility] , third Repository trimester [...] Source: BRAIN 2:48 PM [facility] REPOSITORY [facility] Medical Records Department [address] [place] [address] Operative Report 10/19/18 1446 MR#: [id number] Acct: [id number] Name: ZENA ALVARADO Rep #: [id number] : 1985 33 From: Gokul Dailey MD PCP: Care Physician, No Primary Status: ADM IN Location: [place] [id number] Vaginal Delivery Maternal Presentation: Elective Induction Method [...] Spontaneous vaginal delivery of a viable female infant with Apgars of 8/9 from an occiput [...] Source: BRAIN 2:48 PM [facility] REPOSITORY [facility] Medical Records Department [address] [place] [address] Instructions for Home/Discharge Instructions 10/19/18 1448 MR#: [id number] Acct: [id number] Name: ZENA ALVARADO Rep #: [id number] : 1985 33 From: Gokul Dailey MD [...] Follow Up With: Gokul Dailey MD - [phone] When: Call to make an appointment with [...] NO DIFF 7:40 AM [facility] REPOSITORY TYPE CODE TESTS RESULT OUT OF [...] MPV 9.3 Performed By: #### L100.0500 #### [facility] [address] [place], [place], [address] TYPE AND SCREEN Collected: 10/19/2018 Status: F Source: BRAIN 7:40 AM [facility] REPOSITORY Order Comment: Reason for Type AND Screen/Red Cells: ROUTINE TYPE CODE TESTS RESULT OUT OF RANGE REFERENCE UNITS LAB B10.0800 O Normal BLOOD TYPE GEL POSITIVE LAB B100.4000 Normal Antibody NEGATIVE Screen Performed By: #### B101.7450 #### [facility] [address] [place], [address] Observed: 10/05/2018 Status: F Source: BRAIN CULTURE, GROUP B 11:00 AM [facility] STREPTOCOCCUS REPOSITORY KINDRA Culture Group B Beta Streptococcus is not isolated. Performed By: #### M100.1800 #### [facility] [address] [place], [address] GLUCOSE TOLERANCE-3 Collected: 08/14/2018 Status: F Source: NOEL POMERENE HOUR 7:20 AM [facility] REPOSITORY TYPE CODE TESTS RESULT OUT [...] hour.......... _NA (NEGATIVE) 08/14/18.HEM. Performed By: #### [id number] #### [facility],[address] [address] CBC-COMPLETE BLOOD CNT Collected: 08/03/2018 Status: F Source: BRAIN NO DIFF 10:45 AM [facility] REPOSITORY TYPE CODE TESTS RESULT OUT OF [...] MPV 9.6 Performed By: #### L100.0500 #### [facility] [address] [place], [address] GLUCOSE CHALLENGE GEST Collected: 08/03/2018 Status: F Source: BRAIN 1H 50G 10:45 AM [facility] REPOSITORY TYPE CODE TESTS RESULT OUT OF RANGE REFERENCE UNITS LAB L501.0250 70-140 mg/dL High GLU GEST 156 50g 1H Performed By: #### L501.0250 #### [facility] [place], [address] CBC Collected: 04/11/2018 Status: F Source: NOEL TERRY 3:08 PM [facility] REPOSITORY TYPE CODE TESTS RESULT OUT [...] x10EE3/U L Neut # High 8.50 LAB Upson #(LOINC) 0.20 - 1.00 x10EE3/U L Upson # 0.80 LAB EO #(LOINC) 0.00 - 0.50 x10EE3/U L EO # 0.10 LAB Baso #(LOINC) 0.00 - 0.10 x10EE3/U L Baso # 0.10 LAB MANUAL DIFF(LOINC) MANUAL DIFF N/A LAB MORPHOLOGY(LOINC ) MORPHOLOGY N/A Result Comment: {CD] Performed By: #### [id number] #### [place] [address] URINALYSIS Collected: 04/11/2018 Status: F Source: [facility] [address] [place] [address] REPOSITORY TYPE CODE TESTS RESULT OUT OF [...] ) NORMAL NORM Urobilinog LAB Sp NORMAL: [place](LOINC) 1.010-1.030 Sp 1.015 [place] LAB Nitrite(LOINC) NORMAL: NEGATIVE Nitrite NEG LAB [...] LAB Yeast(LOINC) Yeast NONE Performed By: #### [id number] #### [place] [address] TSH Collected: 04/11/2018 Status: F Source: [facility] [address] [place] [address] REPOSITORY TYPE CODE TESTS RESULT OUT OF RANGE REFERENCE UNITS LAB TSH(LOINC) 0.34 - 5.60 uIU/ml TSH 0.75 Performed By: #### [id number] #### [place] [address] BB TYPE & SCREEN Collected: 04/11/2018 Status: F Source: NOEL TIPTONLJ 3:08 PM [facility] REPOSITORY TYPE CODE TESTS RESULT OUT OF REFERENCE UNITS RANGE LAB BB TYPE & SCREEN(LOIN C) BB TYPE & SCREEN Result Comment: TYPE, Rh, AND SCREEN LAB ABO(LOINC) ABO O LAB Rh(LOINC) Rh POS LAB ANTIBODY SCR(LOINC) ANTIBODY negative SCR Performed By: #### [id number] #### [place] [id number] RUBELLA IMMUNE Collected: 04/11/2018 Status: F Source: NOEL TIPTONELOYPEDRO STATUS [QUEST] 3:08 PM [facility] REPOSITORY TYPE CODE TESTS RESULT OUT [...] infection with Rubella virus. Test Performed by [employer] [facility], [address] [place], [place] Sid Whelan M.D., Ph.D., Director of Laboratories , CLIA [id number] Performed By: #### [id number] #### [facility],[address] [place] [address] RPR W/TITER AND CONF Collected: 04/11/2018 Status: F [facility] REFLEX [QUEST] 3:08 PM [facility] REPOSITORY TYPE CODE TESTS RESULT OUT OF REFERENCE UNITS RANGE LAB RPR W/TITER AND CONF REFLEX [QUEST](LOINC RPR ) W/TITER AND CONF REFLEX [QUEST] Result Comment: _RPR W/TITER AND CONF REFLEX_ RPR (MONITOR) WITH REFLEX TO TITER Reported: 04/14/2018 17:39 Status=F TEST RESULT FLAG RANGE UNITS RPR SCREEN Nonreactive Nonreactive 04/14/18.rfl.COMPLETE.AMRR .79543-9 RPR TITER Not indicated. 04/14/18.rfl.COMPLETE.AMRR Test Performed by [employer], [employer], [address] [place], [place] Sid Whelan M.D., Ph.D., Director of Laboratories , CLIA [id number] Performed By: #### [id number] #### [facility],[address] [place] [address] HEP B SURFACE AG Collected: 04/11/2018 Status: F Source: NOEL LOWPEDRO [QUEST] 3:08 PM [facility] REPOSITORY TYPE CODE TESTS RESULT OUT [...] the current package insert. Test Performed by [employer], [facility] [facility], [address] [place] [address] Sid Whelan M.D., Ph.D., Director of vushaper , [place] [id number] Performed By: #### [id number] #### [facility],[address] [place] [address] HEP C VIRUS AB WITH Collected: 04/11/2018 Status: F Source: NOEL TIPTONLJ REFLEX [QUEST] 3:08 PM [facility] REPOSITORY TYPE CODE TESTS RESULT OUT OF REFERENCE UNITS RANGE LAB HEP C VIRUS AB WITH REFLEX [QUEST](LOINC HEP C ) VIRUS AB WITH REFLEX [QUEST] Result Comment: _HEP C VIRUS AB_ HEPATITIS C AB W/REFL HCV RNA, QN REAL-TIME PCR Reported: 04/14/2018 19:08 Status=F TEST RESULT FLAG RANGE UNITS HEPATITIS C ANTIBODY Nonreactive Nonreactive 04/14/18.rfl.COMPLETE.AMRR .89736-0 SIGNAL TO CUTOFF 0.02 <1.00 ratio 04/14/18.rfl.COMPLETE.AMRR .79034-1 ADDITIONAL TESTING Not indicated 04/14/18.rfl.COMPLETE.AMRR Test Performed by [employer], [facility] [facility], [address] [place] [address] Sid Whelan M.D., Ph.D., Director of [facility] , [facility] [id number] Performed By: #### [id number] #### [facility],[address] [place] [address] HIV 1 / 2 EIA SCR Collected: 04/11/2018 Status: F Source: [facility] W/RFX [QUEST] 3:08 PM [facility] REPOSITORY TYPE CODE TESTS RESULT OUT OF RANGE REFERENCE UNITS LAB HIV 1 / 2 EIA SCR W/RFX [QUEST](JESSICA HIV 1 / 2 NC) EIA SCR W/RFX [QUEST] Result Comment: _HIV-1/2 EIA SCR W/RFX_ SEE SEPARATE REPORT Performed By: #### [id number] #### [facility],[address] [facility] [address] CT/NG WCH BY PCR Collected: 02/23/2018 Status: F Source: HUNTLY 2:30 PM [facility] REPOSITORY TYPE CODE TESTS RESULT OUT OF RANGE REFERENCE UNITS LAB L8200.2100 Negative Normal Chlam Negative Trac PCR LAB L8200.2200 Negative Normal NG by Negative PCR Performed By: #### L8200.1999 #### [facility] [address] [place], [address] PAP IG W/REFLEX HR Collected: 02/23/2018 Status: F Source: HUNTLY HPV APTIMA 2:30 PM [facility] REPOSITORY Order Comment: CYTOLOGY INFORMATION: - CLINICAL INFORMATION: - DATE LMP/MENOPAUSE: LMP - COLLECTION VIAL: Thin Prep Vial - [employer] SOURCE: CERVICAL/ENDOCERVICAL - COLLECTION TECHNIQUE: BRUSH/SPATULA Specimen Comment: [id number] Specimen Comment: No. of containers..01 ThinPrep Vial TYPE CODE TESTS RESULT OUT OF RANGE REFERENCE UNITS LAB L7400.0800 . Normal DIAGN Comment Result Comment: NEGATIVE FOR INTRAEPITHELIAL LESION AND MALIGNANCY. LAB L7400.0900 . Normal ADEQ Comment Result Comment: Satisfactory for evaluation. Endocervical and/or squamous metaplastic cells (endocervical component) are present. LAB L7400.1400 . Normal PERFORM Comment Result Comment: Christian Thomas Cfo (ASCP) LAB L7400.2575 . Normal TEST METHOD [...] no HPV testing was performed. Performed at: [address], [id number] Planning Consultant: Katiuska Rod MD, Phone: [phone] Performed By: #### L7400.0357 #### [facility] (refer to report for specific site) refer to report for address and phone number ALLERGIES ALLERGIES DATE TYPE / CODE NAME / CODE REACTION SEVERITY SOURCE 10/09/2018 Drug egg/[id number]( Upset Stomach Unknown Brain Allergy/180880992(S RXNORM) [facility]) Hospital Repository 10/09/2018 Drug gluten/E2286627 Upset Stomach Unknown Brain Allergy/654235826(S 07(RXNORM) [facility] CT) Hospital Repository Food GLUTEN Moderate Noel Pomerene Allergy/793426220(S ([facility] Modifier) Hospital (Qualifier Repository Value) Drug EGGS/38313561(R Moderate Noel [place] Allergy/059197765(S XNORM) ([facility]) Modifier) Hospital (Qualifier Repository Value) Miscellaneous No Known Drug Moderate Noel P[place] Allergy/136662829(S Allergies ([facility]) Modifier) Hospital (Qualifier Repository Value) ENCOUNTERS ENCOUNTERS ADMIT/DISCHARGE ACCOUNT ADMITTING ENCOUNTER LOCATION SOURCE NUMBER CLASS 10/19/2018/ [id number] Gokul Dailey Inpatient [place] 8 3 Encounter [facility] ing:WPRoom: Repository DT183Mfz: 1 10/09/2018/ [id number] Ambulatory Brain [place] 8 2 [facility] ing:WPOUTRoom Repository : [id number] 10/05/2018 [id number] Ambulatory Brain Brain 3 [facility] ing:LABSPEC Repository 08/14/2018/ [id number] GOKUL DAILEY Ambulatory [address] Repository 08/03/2018 [id number] Ambulatory [place] 3 [facility] ing:WOBLAB Repository 04/11/2018/ [id number] GOKUL DAILEY Ambulatory [address] Repository 02/23/2018 [id number] Ambulatory Brain Brain 0 [facility] ing:LABSPEC Repository PAYERS PAYERS ENCOUNTER GUARANTOR PAYER SUBSCRIBER SOURCE 10/19/2018 ZENA D Primary Insurance:[facility] ZENA D [place] [id number] PACKAGE PLANPolicy HERSHBERGERDOB: [facility] Number: [id number] [id number] Repository [address]Rpo: 330) Date:2018-03-17 [phone] (HP) 10/19/2018 Secondary ZENA D Brain Insurance:ANABAPTIST HERSHBERGERDOB: [facility] [id number] Hospital GROUPPolicy Number: Repository [id number] Date: TW RD [address] [place] [address]TF: 10/19/2018 Tertiary NOT GIVENUNK [place] Insurance:SELF PAY [facility] Number: Effective Repository Date:2018-03-17 10/09/2018 ZENA D Primary ZENA D [place] [id number] Insurance:ANABAPTIST HERSHBERGERDOB: [facility] [id number] GROUPPolicy Number: Repository [id number]: 330 [id number] [phone] (HP) Date: TW RD [address] [place] [address]LF: 10/09/2018 Secondary NOT GIVENUNK Brain Insurance:SELF PAY [facility] Number: Effective Repository Date:2018-10-09 10/05/2018 ZENA D Primary ZENA D [place] [id number] Insurance:ANABAPTIST HERSHBERGERDOB: [facility] [id number] GROUPPolicy Number: Repository [id number]: 330 [id number] [phone] (HP) Date: TWP [address] [address]UD: 10/05/2018 Secondary NOT GIVENUNK Brain Insurance:SELF PAY [facility] Number: Effective Repository Date:2018-10-05 08/14/2018 ZENA D Primary PHUC Terry HERSHBERGERDOB: Insurance:ANABAPTIST HERSHBERGERDOB: [facility] [id number] [facility] [id number] Number: 105Effective [address] Repository [place], [place] Date: [place], [place] [id number]: [id number] () 08/03/2018 [facility] Primary [address] [id number] Insurance:ANABAPTIST HERSHBERGERDOB: [facility] [id number], [place] GROUPPolicy Number: Repository [id number]: 330 [id number] [phone] () Date: TWP [address] [address]QK: 08/03/2018 Secondary NOT GIVENUNK Brain Insurance:SELF PAY [facility] Number: Effective Repository Date:2018-08-03 02/23/2018 [facility] Primary [address] [address] [place] [id number] Insurance:ANABAPTIST HERSHBERGERDOB: [facility] [id number], [place] GROUPPolicy Number: Repository [id number]: 330 [id number] [phone] () Date: TWP [address] [address]FS: 02/23/2018 Secondary NOT GIVENUNK Brain Insurance:SELF PAY [facility] Number: Effective Repository Date:2018-02-23
== END 2018-10-20 18:50 | disposition home or self-care (01) | DRG 807 ==
PROVIDERS: Admitting Provider Obstetrics & Gynecology; Referring Provider Obstetrics & Gynecology; Visit Provider Obstetrics & Gynecology
DX: O80 Encounter for full-term uncomplicated delivery (principal); Z37.0 Single live birth; Z3A.39 39 weeks gestation of pregnancy
CPT/HCPCS: 59025; 59050; 85027; 86850; 86900; 99218; J7120; G0378; J2405

== ENCOUNTER → 2021-06-16 09:35 | Outpatient (CLI) | payer OTHER, SELFPAY ==
[2021-06-16 11:19] LABS: Absolute Lymphocyte Count 1.82 X10^3/uL (0.83-4.51); Absolute Neutrophil Count 7.1 X10^3/uL (2.0-7.7); Basophil# 0.05 X10^3/uL; Basophil% 0.5 % (0-1); Eosinophil# 0.15 X10^3/uL; Eosinophils% 1.5 % (0-5); Hematocrit 35.5 % (37-47); Hemoglobin 11.9 g/dL (12.0-15.0); Lymphocyte # 1.82 X10^3/ul (0.83-4.51); Lymphocyte % 18.5 % (19-41); Mean Corp Hgb Conc 33.5 g/dL (32-36); Mean Corpuscular Hgb 29.2 pg (27.0-32.0); Mean Corpuscular Volume 87.2 fL (81-99); Mean Platelet Vol. 9.6 fl (6.2-12.0); Monocyte# 0.72 X10^3/uL; Monocyte% 7.3 % (0-10); NRBC Flagged by Analyzer 0 % (0-5); Neutrophil # 7.08 X10^3/uL (2.7-7.7); Neutrophil % 71.8 % (47-70); Platelet Count 269 K/mm3 (150-450); RBC Distribution Width CV 12.9 % (11.6-14.6); RBC Distribution Width SD 41.2 fl (35.1-43.9); Red Blood Count 4.07 M/mm3 (4.2-5.4); White Blood Count 9.9 K/mm3 (4.4-11.0)
[2021-06-16 16:33] LABS: HIV - WCH Non-Reactive (Nonreactive); Hepatitis B Surface Antigen Non-Reactive (Nonreactive); Hepatitis C Antibody Non-Reactive (Nonreactive); Rubella IgG Reactive (Nonreactive); Syphilis Antibodies Non-reactive
[2021-06-18 03:07] LABS: Chlamydia By Nucleic Acid AMP Negative (Negative)
[2021-06-18 07:49] LABS: Gonococcus By Nucleic Acid AMP Negative (Negative)
[2021-06-18 20:13] LABS: HPV APTIMA, High Risk Negative (Negative)
== END ==
PROVIDERS: Visit Provider Obstetrics & Gynecology
DX: Z34.81 Encounter for supervision of other normal pregnancy, first trimester (principal)
CPT/HCPCS: 36415; 85025; 86703; 86762; 86780; 86803; 87086; 87088; 87340; 87491; 87591; 87624; 88175; G0145

== ENCOUNTER → 2021-10-21 10:15 | Outpatient (CLI) | payer OTHER, SELFPAY ==
[2021-10-21 10:55] LABS: Hematocrit 31.2 % (37-47); Hemoglobin 10.3 g/dL (12.0-15.0); Mean Corpuscular Hgb 29.9 pg (27.0-32.0); Mean Corpuscular Volume 90.7 fL (81-99); Mean Platelet Vol. 9.2 fl (6.2-12.0); Platelet Count 305 K/mm3 (150-450); RBC Distribution Width CV 12.8 % (11.6-14.6); Red Blood Count 3.44 M/mm3 (4.2-5.4); White Blood Count 9.6 K/mm3 (4.4-11.0)
[2021-10-21 11:01] LABS: Glucose Challenge Gest 1H 50g 130 mg/dL (70-140)
== END ==
PROVIDERS: Visit Provider Obstetrics & Gynecology
DX: Z34.83 Encounter for supervision of other normal pregnancy, third trimester (principal)
CPT/HCPCS: 36415; 82950; 85027

== ENCOUNTER 2021-12-22 17:41 | Inpatient (IN) | payer SELFPAY, OTHER ==
[2021-12-22] VITALS (29 sets, daily range): BP systolic 108–126; BP diastolic 63–81; PULSE 64–96; RESP 18; TEMP 36.3–36.8; O2SAT 85–98; BMI 25.4
--- NOTE | 2021-12-22 | PLAC_PTH ---
PATIENT: ZENA ALVARADO LOC: WP U#:[id number] AGE/SX: 36/F [facility]: Dr. Kerrie Whelan MD : 1985 BED: 1 DIS: 12/24/2021 SPEC #: [id number] RECD: 12/22/21 20:18 STATUS: JORI REYES #: [id number] ROM: 12/22/21 00:[address]: Kerrie Peterson DEPT: SURGICAL PATHOLOGY RECD BY: Susanne Patel ENTERED: 12/23/21 11:37 SP TYPE: PLACENTA OTHR DR: No Primary Care Phys Tissues: Placenta, NOS Procedures: Surgery Specimen Level V HEADER OPERATION: Vaginal delivery PRE-OP DIAGNOSIS: TISSUE SUBMITTED: Placenta MICROSCOPIC DIAGNOSIS Placenta: Placental disc - third trimester placenta (270 gm). Membranes - no pathologic diagnosis. Umbilical cord - three blood vessels and minimal acute inflammation. SJ:citlalli 12/24/2021 MICROSCOPIC DESCRIPTION Slides are reviewed. GROSS DESCRIPTION SPECIMEN: PLACENTA / CLINICAL INFORMATION: A. Weight: 2.685 kg B. Gestational Age: 36 weeks C. Sex: Male PLACENTAL WEIGHT (POST FIXATION): 270 gm PLACENTAL DIMENSIONS: 15.5 x 14 x 2 cm PLACENTAL SHAPE: Usual ovoid PLACENTAL WEIGHT FOR GESTATIONAL AGE: <10th percentile MEMBRANES - Present A. Insertion: Marginal B. Site of rupture from edge: 4 cm from edge of placental disc C. Color of membrane: Underwood-ozuna D. Abnormalities: None UMBILICAL CORD - Present A. Color: Underwood-ozuna B. Insertion: Central C. Length: 30 cm D. Diameter: 1.3 cm E. Number of vessels: Three F. Abnormalities: None PLACENTAL DISC - Present A. Color of surface: Underwood-ozuna B. surface abnormalities: None C. Maternal cotyledons: Intact with minimal tears D. Attached retro placental clot: No clot E. Cut surface: Dark red and spongy F. Lesions: None G. Separate clot: Blood clot measures 4 x 3 x 1 cm SECTIONS SUBMITTED: 1. Umbilical cord ( end notched) 2. Umbilical cord, placental end 3. Membrane roll 4. Placental disc, and maternal surfaces 5. Placental disc, and maternal surfaces 6. Placental disc, and maternal surfaces AM:citlalli 12/23/2021 TC:2 CPT: 44355
[2021-12-22] MEDS: Lactated Ringers 1,000 ML 50 ML IV (18:10)
[2021-12-22 18:20] LABS: Absolute Lymphocyte Count 2.02 X10^3/uL (0.83-4.51); Basophil# 0.05 X10^3/uL; Basophil% 0.2 % (0-1); Eosinophil# 0.02 X10^3/uL; Eosinophils% 0.1 % (0-5); Hematocrit 34.2 % (37-47); Hemoglobin 11.6 g/dL (12.0-15.0); Lymphocyte # 2.02 X10^3/ul (0.83-4.51); Lymphocyte % 9.3 % (19-41); Mean Corp Hgb Conc 33.9 g/dL (32-36); Mean Corpuscular Hgb 29.3 pg (27.0-32.0); Mean Corpuscular Volume 86.4 fL (81-99); Mean Platelet Vol. 9.1 fl (6.2-12.0); Monocyte# 1.43 X10^3/uL; Monocyte% 6.6 % (0-10); NRBC Flagged by Analyzer 0 % (0-5); Neutrophil # 18.02 X10^3/uL (2.7-7.7); Neutrophil % 83.2 % (47-70); Platelet Count 219 K/mm3 (150-450); RBC Distribution Width CV 13.2 % (11.6-14.6); RBC Distribution Width SD 41.4 fl (35.1-43.9); Red Blood Count 3.96 M/mm3 (4.2-5.4); White Blood Count 21.7 K/mm3 (4.4-11.0)
[2021-12-22] MEDS: Oxytocin 30 units/NS 500 ml 30 UNITS/500 ML IV.SOLN 334 UNITS IV (18:20)
--- NOTE | 2021-12-22 18:38 | EX.PCM.OBRPT ---
Assessment & Plan (1) 36 weeks gestation of : (2) labor with delivery: (3) (spontaneous vaginal delivery): Maternal Data Information Final SOLO: 01/15/22 Final SOLO Source: US <20 weeks Vaginal Delivery Maternal Presentation Maternal Presentation: Active Labor Maternal Presentation: Precipitous delivery Operative Information Date of Procedure: 12/22/21 Pre-Operative Diagnosis: 1. 36 4/7 weeks gestation 2. labor Post-Operative Diagnosis: 1. 36 4/7 weeks gestation 2. labor 3. Precipitous delivery Surgery / Procedure Performed: Spontaneous Vaginal Delivery Type of Anesthesia: None Estimated Blood Loss: 100 ml Time of Delivery: 18:14 Findings Description of Procedure: Patient was fully dilated and +4 station on my arrival to the room. She pushed to deliver a vigorous male . The was placed on the maternal abdomen and further attended by the nursery personnel. The cord was doubly clamped and cut at 3 minutes of life. The placenta delivered spontaneously and appeared intact on inspection. A first-degree perineal laceration was repaired with 3-0 Vicryl Rapide. There is excellent hemostasis. Fundus was firm at 1 fingerbreadth below the umbilicus. Sponge and needle counts were correct x2. Presentation: Vertex Amniotic Membrane Rupture Type: Spontaneous Amniotic Fluid Description: Clear Placental Delivery Description: Spontaneous Specimen(s) Removed: Placenta Cord Vessel Description: 3 Vessels Cord Entanglement: None Nuchal Cord Compression: Without compression Infant A Gender: Male (1 minute): 8 (5 minute): 9 Delayed Cord Clamping: Yes Post Vaginal Delivery Medications Given After Delivery: IV Pitocin Episiotomy Description: None Laceration: Midline and 1st degree Complication Complications: None
--- NOTE | 2021-12-22 18:46 | PCM.HP.BLA ---
History and Physical Date of Admission: 12/22/21 [facility] [place] - H[place]ORY AND PHYSICAL (12/22/2021) Name: ADE ALVARADO History of this : This is a 36 year old who presents at 36 wks + 4 days gestation with c/o painful contractions. OB Physician: Edu Yuen MD 's Physician: Betsy Olsen TRANSMISSION SPECIALIST. [facility] ...................................................................... : 1985 Age: 36 Address: [address] [place] [address] Phone: H) [phone] (O) [phone] Insurance Carrier: [facility] [employer] [id number] Emergency Contact: MIHIR ALVARADO/SPOUSE [phone] ...................................................................... Final SOLO: 01/15/22 By Ultrasound: 9 weeks 4 days PARITY: (G-Total Pregnancies P-Fullterm,Premature,Induced AB,Spont AB, Ectopics, Multiple,Living) SOLO CONFIRMATION: By LMP: 04/02/21 By First Ultrasound Exam: 01/15/22 Final SOLO: 01/15/22 OB PROBLEM LIST: Ade's brother born with cleft lip and palate. Hx del 19w twin males. Term pregnancies before and after. ALLERGIES: Egg Intolerance-diarrhea Gluten Intolerance-diarrhea No Known Allergies MEDICATIONS: Anti-Allergy Formula 100 mg-100 mg-50 mg tablet Allervert once daily prn Calcium 500 + D 500 mg(1,250 mg)-400 unit chewable tablet 1 gtt bid Colace 100 mg capsule As Directed 28 mg iron-800 mcg tablet One pill by mouth once a day SOCIAL HISTORY: Smoking - Never Alcohol Use - None Diet - Egg and gluten free. Occ tea, Water tries for 7-8 glasses daily. Lifestyle - moderate stress lifestyle and Exercise - Active w home, garden, ernst and cleaning. Employer - [employer] Job Description - Illicit Drug Use - denies use of street drugs Sexual Activity - Residence - lives with Place of - [place] Spouse-Sig Other Name - Mihir Spouse-Sig Other Occupation - [employer] Spouse-Sig Other Phone No - work [phone] emergecy only. Children Name(s) - Lizy Church PRIOR DELIVERY HISTORY DEL DATE GEST LAB WT LB WT OZ TYPE ANES LABOR TX 13 Oct 24 39 6 6 4 Vag None No March 20 40 6 6 8 Vag None No Sep 22 19 0 0 0 Vagin None No ANTEPARTUM FLOW CHART VISIT GE RTC FU F F MT U U DATE WK MD WKS HT PN HR M SS BP ED WT MT GL D EF ST __ ____ ___ __ __ ___ __ __ __ ___ __ __ __ ___ __ Dec 07 JMW 2 31 + + 108/62 0 137 - - 15 Nov 02 JMW 3 27 + + 118/66 0 133 - 1+ 01 Sep 27 JMW 6 21 + + 114/68 129 18 Aug 25 CM 1 + + 120/62 0 126 - - 06 Aug 23 JMW 3 17 + + 112/70 0 124 - - 08 Jul 13 JMW 4 13 + + 122/82 0 122 - - ANTEPARTUM NOTE(S): Nov 18 2021: doing well, Good FM Oct 21 2021: doing well, One Hr PG today Sep 07 2021: Glucola Given, US OK Aug 24 2021: Aug 12 2021: Feeling Well, Flutters Noted, Declines AFP Jul 15 2021: Periodic nausea/fatigue,, Declines AFP COMPREHENSIVE ANTEPARTUM NOTE(S): Nov 18 2021: Ade is 31w5d positive movement,no edema. States she has been getting more leg cramps. Otherwise doing well. BR Oct 21 2021: Ade is 27w5d. She is here today for PNV. Positive movement. No edema. She did her 1hr GTT today. She feels slightly nauseous from the glucola drink. Otherwise doing wel.. BR Sep 07 2021: Doing well, comp u/s today. Glucola given with instructions. LMT Aug 24 2021: Ade is here as work in visit with concern of a light green vaginal discharge noticed yesterday after IC and has occurred about 3 x since then; last noted around lunch time today. No leaking fluid No spotting. No ctx's. Last IC yesterday, Feeling FM for a few weeks. kbm Aug 24 2021: 19/3w OB acute. SSE showed white discharge. Neg DRE/wet prep/nitrazine. Cervix closed visually. Pt denies cramping, bleeding. +FM. Discharge home with reassurance (no signs of labor or infection) and precautions. If she develops fever, itching or burning to call. F/u 1w with US. CM Jul 01 2021: TELEHEALTH NOB-- Ade is a 36 yo G 4 P 2 Mu-Ism homemaker w SOLO 01-15-22 [address] a vag del at [facility] [place] without an epidural, using [facility] for post disch ped care and to breastfeed. Her , Mihir works at [employer] in the office. They are happy about the pg. Ade has NKAD. She does have seasonal allergies worse in the Spring and Fall. She's a lifetime non smoker, uses no a Jun 16 2021: Ade is here with for missed menses. LMP 04-02-21. Home and office UPT +. 10w 5d SOLO 01-07- . Had miscarried a set of twins. Has 2 children. Both full term vaginal deliveries. Last PAP and WNL. info packet given. Otherwise there have been no changes to her health since her last visit. Non-smoker. Allergy and mediction lists current. LSS REVIEW OF SYSTEMS: GENERAL - Denies fever, or chills SKIN - Denies rash, new skin lesions, or change in moles EYES - Denies blurred vision, or change in visual acuity EARS - Denies ear pain, or difficulty hearing NOSE - Denies nasal congestion, discharge, or bleeding MOUTH - Denies sore throat, or difficulty swallowing NECK - Denies pain or swelling RESPIRATORY - Denies shortness of breath, cough, wheezing CARDIOVASCULAR - Denies palpitations, chest pain, orthopnea, PND, peripheral edema, syncope or claudication GASTROINTESTINAL - Denies nausea, vomiting, diarrhea, constipation, Denies abdominal pain, melena and or bright red blood GENITOURINARY - Denies dysuria, frequency of urination, urgency, or hesitancy MUSCULOSKELETAL - Denies joint or muscle pain, or back pain NEUROLOGICAL - Denies localized numbness, weakness, or tingling PSYCHIATRIC - Denies depression, anxiety, substance abuse or suicide attempts ENDOCRINE - Denies heat or cold intolerance, weight loss or gain, increasing thirst HEMATO-IMMUNOLOGIC - Denies easy bruising, bleeding, oral ulcerations or recurrent infections GENETICS SCREENING: Age 35+ years: No Thalassemia: No Neural Tube Defect: No Down Syndrome: No FORREST-SACHS: No Sickle Cell Disease: No Hemophilia: No Musc. Dystrophy: No Cystic Fibrosis: No-declines screening [place] Chorea: No Mental Retardation: No Fragile X: No Other genetic: Yes Other defects: Yes SABs/still births: Yes x1 Drugs since LMP: Yes Comments: Allavert, Colace INFECTION HISTORY: High risk AIDS: No High risk Hepatitis: No Exposed to TB: No Exposed to Herpes: No Rash/viral illness since LMP: No History of STD: No MENSTRUAL HISTORY: *Menarche (Age Onset): 14* PAST SUMMARY: PARITY: 1. Total Pregnancies............ 4 2. Full Term Pregnancies........ 2 3. Premature.................... 1 4. Abortions - Induced.......... 0 5. Abortions - Spontaneous...... 0 6. Ectopics..................... 0 7. Multiple Births.............. 1 8. Living Children.............. 2 PAST #1: Date of :.................. 03/22/14 Gestation Weeks:................ 40 Length of labor(hours):......... 6 Sex:............................ M Weight-lbs:............... 6 Weight-oz:................ 8 Type of Delivery:............... Vag Type of Anesthesia:............. None Place of Delivery:.............. [facility] Treatment of Labor?:.... No Comment: NO PAST #2: Date of :.................. 10/04/16 Gestation Weeks:................ 19 Length of labor(hours):......... 0 Sex:............................ M Weight-lbs:............... 0 Weight-oz:................ 0 Type of Delivery:............... Vaginal Type of Anesthesia:............. None Place of Delivery:.............. [facility] Treatment of Labor?:.... No Comment: [place] PAST #3: Date of :.................. 10/19/18 Gestation Weeks:................ 39 Length of labor(hours):......... 6 Sex:............................ F Weight-lbs:............... 6 Weight-oz:................ 4 Type of Delivery:............... Vag Type of Anesthesia:............. None Place of Delivery:.............. [place] Treatment of Labor?:.... No Comment: IOL PHYSICAL EXAMINATION General Appearence: 36 yo female in no acute distress Vital Signs: AF, VSS Heart: RRR without rubs or gallops Lungs: CTA x 2 Breasts: deferred Abdomen: gravid Pelvis: Cervix: FD/+4 Presentation: cephalic Fetus: Size: AGA Movement: present Heart: present, Cat I FHR LAB TEST(S) ORDERED SINCE:04/20/21 10/21/2021 GLUCOSE CHALLENGE GEST 1H 50G 10/21/2021 CBC-COMPLETE BLOOD CNT NO DIFF 06/18/2021 URINE CULTURE 06/18/2021 PAP IG HPV APTIMA 16/18,45 06/18/2021 CHLAMYDIA/GC MARCELL APTIMA 06/17/2021 RUBELLA IGG 06/17/2021 L509.8000 06/17/[address] - [facility] [place] 06/17/2021 HEPATITIS C ANTIBODY 06/17/2021 HEPATITIS B SURFACE ANTIGEN 06/16/2021 T AND S-NO CHARGE W/PNP 06/16/2021 CBC W/DIFF, AUTOMATED 12/22/2021 CBC W/DIFF, AUTOMATED == ==== Order Observation Description Value Ref_Range A* Site == ==== CBC W/DIFF, AUT NOTE DIAZ CBC W/DIFF, AUT WBC 21.7 K/mm3 4.4-11.0 H ML CBC W/DIFF, AUT RBC 3.96 M/mm3 4.2-5.4 L ML CBC W/DIFF, AUT HGB 11.6 g/dL 12.0-15.0 L ML CBC W/DIFF, AUT HCT 34.2 37-47 L ML CBC W/DIFF, AUT MCV 86.4 fL 81-99 ML CBC W/DIFF, AUT MCH 29.3 pg 27.0-32.0 ML CBC W/DIFF, AUT MCHC 33.9 g/dL 32-36 ML CBC W/DIFF, AUT RDW CV 13.2 11.6-14.6 ML CBC W/DIFF, AUT RDW SD 41.4 fl 35.1-43.9 ML CBC W/DIFF, AUT PLT 219 K/mm3 150-450 ML CBC W/DIFF, AUT MPV 9.1 fl 6.2-12.0 ML CBC W/DIFF, AUT NEUT% 83.2 47-70 H ML CBC W/DIFF, AUT LY% 9.3 19-41 L ML CBC W/DIFF, AUT MONO% 6.6 0-10 ML CBC W/DIFF, AUT EO% 0.1 0-5 ML CBC W/DIFF, AUT BASO% 0.2 0-1 ML CBC W/DIFF, AUT IG% 0.600 0.0-0.9 ML IG% - Immature Granulocytes (promyelocytes, myelocytes and metamyelocytes) > 1% indicates that a LEFT SHIFT is Present. CBC W/DIFF, AUT ABSOLUTE NEUT 18.0 X10 3/uL 2.0-7.7 H ML CBC W/DIFF, AUT ABSOLUTE LYMPH 2.02 X10 3/uL 0.83-4.51 ML CBC W/DIFF, AUT NUCLEATED RBC 0 0-5 ML GLUCOSE CHALLEN NOTE DIAZ GLUCOSE CHALLEN GLU GEST 50G 1H 130 mg/dL 70-140 ML CBC-COMPLETE BL NOTE DIAZ CBC-COMPLETE BL WBC 9.6 K/mm3 4.4-11.0 ML CBC-COMPLETE BL RBC 3.44 M/mm3 4.2-5.4 L ML CBC-COMPLETE BL HGB 10.3 g/dL 12.0-15.0 L ML CBC-COMPLETE BL HCT 31.2 37-47 L ML CBC-COMPLETE BL MCV 90.7 fL 81-99 ML CBC-COMPLETE BL MCH 29.9 pg 27.0-32.0 ML CBC-COMPLETE BL MCHC 33.0 g/dL 32-36 ML CBC-COMPLETE BL RDW CV 12.8 11.6-14.6 ML CBC-COMPLETE BL RDW SD 42.0 fl 35.1-43.9 ML CBC-COMPLETE BL PLT 305 K/mm3 150-450 ML CBC-COMPLETE BL MPV 9.2 fl 6.2-12.0 ML URINE CULTURE NOTE DIAZ HEPATITIS C ANT NOTE DIAZ HEPATITIS C ANT HEPATITIS C AB Non-Reactive Nonreactive ML Non Reactive: < 0.8 Equivocal: >/= 0.8 to < 1.0 Reactive: >/= 1.0 The CDC recommends that a reactive/equivocal HCV antibody result be followed up by the HCV Nucleic Acid Amplification test (605077) HEPATITIS B CARLOS NOTE DIAZ HEPATITIS B CARLOS HEP B SURF AG Non-Reactive Nonreactive ML HIV - WC NOTE DIAZ HIV - [facility] HIV Non-Reactive Nonreactive ML L509.8000 NOTE DIAZ L509.8000 SYPHILIS ABS Non-reactive ML RUBELLA IGG NOTE DIAZ RUBELLA IGG RUBELLA IGG Reactive Nonreactive ML Antibody Results Interpretation of Immune Status Non Reactive Presumed Non-Immune Equivocal Equivocal Reactive Presumed Immune PN N [facility]~[address] [place], [address]~ T AND AB SCREEN GEL NEGATIVE ML CBC W/DIFF, AUT NOTE DIAZ CBC W/DIFF, AUT WBC 9.9 K/mm3 4.4-11.0 ML CBC W/DIFF, AUT RBC 4.07 M/mm3 4.2-5.4 L ML CBC W/DIFF, AUT HGB 11.9 g/dL 12.0-15.0 L ML CBC W/DIFF, AUT HCT 35.5 37-47 L ML CBC W/DIFF, AUT MCV 87.2 fL 81-99 ML CBC W/DIFF, AUT MCH 29.2 pg 27.0-32.0 ML CBC W/DIFF, AUT MCHC 33.5 g/dL 32-36 ML CBC W/DIFF, AUT RDW CV 12.9 11.6-14.6 ML CBC W/DIFF, AUT RDW SD 41.2 fl 35.1-43.9 ML CBC W/DIFF, AUT PLT 269 K/mm3 150-450 ML CBC W/DIFF, AUT MPV 9.6 fl 6.2-12.0 ML CBC W/DIFF, AUT NEUT% 71.8 47-70 H ML CBC W/DIFF, AUT LY% 18.5 19-41 L ML CBC W/DIFF, AUT MONO% 7.3 0-10 ML CBC W/DIFF, AUT EO% 1.5 0-5 ML CBC W/DIFF, AUT BASO% 0.5 0-1 ML CBC W/DIFF, AUT IG% 0.400 0.0-0.9 ML IG% - Immature Granulocytes (promyelocytes, myelocytes and metamyelocytes) > 1% indicates that a LEFT SHIFT is Present. CBC W/DIFF, AUT ABSOLUTE NEUT 7.1 X10 3/uL 2.0-7.7 ML CBC W/DIFF, AUT ABSOLUTE LYMPH 1.82 X10 3/uL 0.83-4.51 ML CBC W/DIFF, AUT NUCLEATED RBC 0 0-5 ML PAP IG HPV APTI NOTE DIAZ PAP IG HPV APTI DIAG Comment . LCI NEGATIVE FOR INTRAEPITHELIAL LESION OR MALIGNANCY. CELLULAR CHANGES ASSOCIATED WITH INFLAMMATION ARE PRESENT. PAP IG HPV APTI ADEQ Comment . LCI Satisfactory for evaluation. Endocervical and/or squamous metaplastic cells (endocervical component) are present. PAP IG HPV APTI PERFORM Comment . LCI Paulina Bronson, Industrial Electrician Journeyman (ASCP) This liquid based ThinPrep(R) pap test was screened with the use of an image guided system. PAP IG HPV APTI COMM . . LCI PAP IG HPV APTI PAPSMR Comment . LCI The Pap smear is a screening test designed to aid in the detection of premalignant and malignant conditions of the uterine cervix. It is not a diagnostic procedure and should not be used as the sole means of detecting cervical cancer. Both false-positive and false-negative reports do occur. PAP IG HPV APTI HPV APTIMA, HR Negative Negative LCI This nucleic acid amplification test detects fourteen high- risk HPV types (16,18,31,33,35,39,45,51,52,56,58,59,66,68) without differentiation. Performed at: [address] [id number] Varnisher Apprentice: Katiuska Rod MD, Phone: [phone] Performed at: =[address] [id number] Varnisher Apprentice: Katiuska Rod MD, Phone: [phone] CHLAMYDIA/GC NA NOTE DIAZ CHLAMYDIA/GC NA CHLAMY,NUC ACID Negative Negative LCI CHLAMYDIA/GC NA GC BY NUC ACID Negative Negative LCI Performed at: =[address], [place] [id number] Varnisher Apprentice: Katiuska Rod MD, Phone: [phone] Below infection level. Mixed Gram Positive Organisms [place] Count 1000-10,000 O POSITIVE == ==== Impression /Plan: 36 wks + 4 days intrauterine presented to L&D and precipitously delivered. See delivery note. Assessment & Plan Assessment/Plan (1) 36 weeks gestation of : (2) labor with delivery:
[2021-12-22] MEDS: Ibuprofen 600 MG Tablet PO (19:03)
--- NOTE | 2021-12-22 21:20 | NURSING ---
Report given to Leta RAYMOND, taking over pt and care.
[2021-12-23 03:10] VITALS: BP 99/70; PULSE 76; RESP 18; TEMP 36.4
--- NOTE | 2021-12-23 08:32 | PN.OBGYN_ITS ---
Subjective Subjective No issues overnight. Her perineum is sore, but otherwise no complaints. OOB, ambulating and voiding without difficulty. DEnies heavy lochia. Infant is well. Objective Data Objective Data Vital Signs: Vital Signs Temp Pulse Resp BP Pulse Ox 97.5 F L 76 18 99/70 98 12/23/21 03:10 12/23/21 03:10 12/23/21 03:10 12/23/21 03:10 12/22/21 23:55 Oxygen Delivery Method Room Air Weight: 63 kg Body Mass Index (BMI) 25.4 Intake & Output: Intake and Output for Last 24 Hours 12/21/21 12/22/21 12/23/21 23:59 23:59 23:59 Intake Total 502.5 / 502.5 Output Total 950 / 950 Balance -447.5 / -447.5 Lab / Micro Data Result Diagrams: 12/22/21 18:10 Labs: Laboratory Results - last 24 hr 12/22/21 18:10: WBC 21.7 H, RBC 3.96 L, Hgb 11.6 L, Hct 34.2 L, MCV 86.4, MCH 29.3, MCHC 33.9, RDW Std Deviation 41.4, RDW Coeff of [place]iya 13.2, Plt Count 219, MPV 9.1, Immature Gran % (Auto) 0.600, Neut % (Auto) 83.2 H, Lymph % (Auto) 9.3 L, [place] % (Auto) 6.6, Eos % (Auto) 0.1, Baso % (Auto) 0.2, Absolute Neuts (auto) 18.0 H, Absolute Lymphs (auto) 2.02, Nucleated RBC % 0 12/22/21 18:10: Blood Type O POSITIVE, Antibody Screen NEGATIVE Micro: Microbiology 12/22/21 18:20 Nasal Secretion SARS-CoV-2 Antigen (Rapid) - Final Physical Exam Const alert, oriented x3 and no apparent distress Resp normal respiratory effort and normal air movement Cardio regular rate, regular rhythm, S1 normal heart sound and S2 normal heart sound Narrative: lochia scant Uterus Palpation: uterus fundus firm and other OB fundus nontender Extremity no calf tenderness Neuro oriented x3 Assessment & Plan (1) 36 weeks gestation of : (2) labor with delivery: (3) (spontaneous vaginal delivery): PLAN: O pos Routine care Plan for d/c home tomorrow as requires 36h observation for GBS unknown and
[2021-12-23 08:59] VITALS: BP 99/65; PULSE 102; RESP 16; TEMP 36.4; O2SAT 97
[2021-12-23] MEDS: Ibuprofen 600 MG Tablet PO (10:13)
[2021-12-23 12:39] VITALS: BP 98/62; PULSE 71; RESP 14; TEMP 36.6; O2SAT 97
[2021-12-23 16:30] VITALS: BP 115/79; PULSE 80; RESP 17; TEMP 36.4; O2SAT 98
[2021-12-23 20:30] VITALS: BP 117/72; PULSE 84; RESP 16; TEMP 36.4; O2SAT 99
[2021-12-24 00:57] VITALS: BP 104/71; PULSE 73; RESP 16; TEMP 36.6; O2SAT 98
[2021-12-24 03:34] VITALS: BP 111/73; PULSE 73; RESP 16; TEMP 36.6; O2SAT 100
[2021-12-24 07:30] VITALS: BP 134/90; PULSE 92; RESP 14; TEMP 36.5; O2SAT 100
[2021-12-24] MEDS: Ibuprofen 600 MG Tablet PO (07:31)
--- NOTE | 2021-12-24 09:17 | PCM.PN.OB ---
Subjective Subjective Reports she is doing well this morning. Has some soreness but no other complaints. Denies heavy lochia. She looks forward to going home today. Denies headache, vision changes or abdominal pain. Objective Data Objective Data Vital Signs: Vital Signs Temp Pulse Resp BP Pulse Ox 97.7 F L 92 14 134/90 H 100 12/24/21 07:30 12/24/21 07:30 12/24/21 07:30 12/24/21 07:30 12/24/21 07:30 Oxygen Delivery Method Room Air Weight: 63 kg Body Mass Index (BMI) 25.4 Intake & Output: Intake and Output for Last 24 Hours 12/22/21 12/23/21 12/24/21 23:59 23:59 23:59 Intake Total 502.5 / 502.5 Output Total 950 / 950 Balance -447.5 / -447.5 Lab / Micro Data Result Diagrams: 12/22/21 18:10 Micro: Microbiology 12/22/21 18:20 Nasal Secretion SARS-CoV-2 Antigen (Rapid) - Final Physical Exam Const alert, oriented x3 and no apparent distress Resp normal respiratory effort and normal air movement Cardio regular rate, regular rhythm, S1 normal heart sound and S2 normal heart sound Uterus Palpation: uterus fundus firm and other OB fundus nontender Extremity no calf tenderness Neuro oriented x3 Assessment & Plan (1) labor with delivery: (2) (spontaneous vaginal delivery): PLAN: O pos Routine care Single borderline elevated diastolic BP otherwise blood pressures within normal limits in all normal blood pressures throughout patient feels well and no evidence of preeclampsia. She notes the same thing happened following her last delivery with single elevated blood pressure at time of discharge and notes excitement about going home. Okay for discharge home today. (3) 36 weeks gestation of :
--- NOTE | 2021-12-24 09:21 | PCM.DC ---
Discharge Instructions Diet Discharge Diet: No restrictions Activity Discharge Activity: Return to Normal Activity May resume sexual activity in: 6 weeks Lifting Restrictions: 20lb Dressing / Incision Call your doctor if you observe: Fever of 101 or Higher, Using more than 1 pad per hour, Shortness of breath, Chest pain, Calf discomfort, Uncontrolled pain and - (Persistent or severe headache) Follow Up Care Please Follow Up With: Edu Yuen MD When: 3 weeks for telehealth follow up 6 weeks for visit Test Results: Test results from this visit will be discussed in further detail at your follow-up appointment, if applicable. Discharge Plan Admission Admit Date/Time: 12/22/21 17:41 Primary Reason for Your Visit: Vaginal delivery Attending Provider: Kerrie Peterson Primary Care Provider: Care Physician,Alexa Primary Discharge Orders/Prescriptions Prescriptions: Continued Prenatabs FA 1 TABLET tablet 1 tab PO DAILY RF: 0 docusate sodium 50 mg Capsule 50 mg PO DAILY RF: 0 Referrals / Follow Up: Care Physician,No Primary [Primary Care Provider] - Disposition Disposition (needs filled in before D/C Order can be placed): Home, Self Care
[2021-12-25 08:59] LABS: Pathology Specimen OB SEE PATHOLOGY REPORT
== END 2021-12-24 09:50 | disposition home or self-care (01) | DRG 807 ==
LOC: WPOUT 17:47 → WP 18:06
PROVIDERS: Admitting Provider Obstetrics & Gynecology; Visit Provider Obstetrics & Gynecology
DX: O60.14X0 Preterm labor third trimester with preterm delivery third trimester, not applicable or unspecified (principal); Z37.0 Single live birth; O62.3 Precipitate labor; O70.0 First degree perineal laceration during delivery; Z3A.36 36 weeks gestation of pregnancy
CPT/HCPCS: 59025; 59050; 85025; 86850; 86900; 86901; 87426; 88307; 99218; J7120; G0378